=== PATIENT | male | born 1990 | race Two or more races ===

== ENCOUNTER 2016-12-15 15:41 | Inpatient (IN) | payer OTHER ==
[2016-12-15 17:58] VITALS: BMI 28.6
--- NOTE | 2016-12-15 20:20 | HP ---
COWS - Scale Resting Pulse: 1= [place] 81-100 Sweatin= Chills/Flushing Restless Observation: 1= Difficult to Sit Still Pupil Size: 1= Pupils >than Normal Bone or Joint Aches: 4=Acute Joint/Muscle Pain Runny Nose/ Eye Tearin= Constantly Teary/Runny GI Upset > 30mins: 2= Nausea/Diarrhea Tremor Observation: 1= Tremor [place], Not Seen Yawning Observation: 1= 1-2x During Session Anxiety or Irritability: 2=Irritable/Anxious Goose Flesh Skin: 3=Piloerection COWS Score: 21 Admission ROS S - [facility] Chief Complaint: WITHDRAWAL SYMPTOMS Allergies/Adverse Reactions: Allergies Allergy/AdvReac Type Severity Reaction Status Date / Time No Known Allergies Allergy Verified 12/15/16 19:15 History of Present Illness: 25 Y.O. MAN WITH A 2 YEAR HISTORY OF PERCOCET DEPENDENCE IS HER SEEKING DETOX FOR THE FIRST TIME. HE DOES NOT HAVE A SIGNIFICANT PERIOD CLEAN. Exam Limitations: No Limitations - Ebola screening Have you traveled outside of the country in the last 21 days: No Have you had contact with anyone from an Ebola affected area: No Have you been sick,other than usual withdrawal symptoms: No Do you have a fever: No - Review of Systems Constitutional: Chills, Night Sweats, Changes in sleep EENT: reports: Tearing, Nose Congestion Respiratory: reports: No Symptoms reported Cardiac: reports: Palpitations GI: reports: Abdominal cramping : reports: No Symptoms Reported Musculoskeletal: reports: No Symptoms Reported Integumentary: reports: No Symptoms Reported Neuro: reports: Headache Endocrine: reports: No Symptoms Reported Hematology: reports: No Symptoms Reported Psychiatric: reports: Orientated x3, Depressed Other Systems: Reviewed and Negative Patient History - Patient Medical History Hx Anemia: No Hx Asthma: No Hx Chronic Obstructive Pulmonary Disease (COPD): No Hx Cancer: No Hx Cardiac Disorders: No Hx Congestive Heart Failure: No Hx Hypertension: No Hx Hypercholesterolemia: No Hx Pacemaker: No HX Cerebrovascular Accident: No Hx Seizures: No Hx Dementia: No Hx Diabetes: No Hx Gastrointestinal Disorders: No Hx Liver Disease: No Hx Genitourinary Disorders: No Hx Sexually Transmitted Disorders: No Hx Renal Disease (ESRD): No Hx Thyroid Disease: No Hx Human Immunodeficiency Virus (HIV): No Hx Hepatitis C: No Hx Depression: Yes Hx Suicide Attempt: No Hx Bipolar Disorder: No Hx Schizophrenia: No - Patient Surgical History Past Surgical History: Yes Hx Neurologic Surgery: No Hx Cataract Extraction: No Hx Cardiac Surgery: No Hx Lung Surgery: No Hx Breast Surgery: No Hx Breast Biopsy: No Hx Abdominal Surgery: No Hx Appendectomy: No Hx Cholecystectomy: No Hx Genitourinary Surgery: No Hx Section: No Hx Orthopedic Surgery: Yes (TUMOR REMOVED FROM SPINE-2014) Anesthesia Reaction: No - PPD History Previous Implant?: Yes Documented Results: Negative w/o proof PPD to be Administered?: Yes - Reproductive History Patient is a Female of Child Bearing Age (11 -55 yrs old): No - Smoking Cessation Smoking history: Current every day smoker Have you smoked in the past 12 months: Yes Aproximately how many cigarettes per day: 10 Hx Chewing Tobacco Use: No Initiated information on smoking cessation: Yes 'Breaking Loose' booklet given: 12/15/16 - Substance & Tx. History Hx Alcohol Use: No Hx Substance Use: Yes Substance Use Type: Opiates Hx Substance Use Treatment: No - Substances Abused Percocet Route: Oral Frequency: Daily Amount used: 300mg Age of first use: 23 Date of Last Use: 12/15/16 Family Disease History - Family Disease History Family History: Denies Admission Physical Exam BHS - Vital Signs Vital Signs: Vital Signs - 24 hr 12/15/16 17:54 Temperature 97.4 F L Pulse Rate 83 Respiratory 20 Rate Blood Pressure 131/86 - Physical General Appearance: Yes: Tremorous, Anxious HEENTM: Yes: Normocephalic, Normal Voice Respiratory: Yes: Chest Non-Tender, Lungs Clear, Normal Breath Sounds, No Respiratory Distress, No Accessory Muscle Use Neck: Yes: No masses,lesions,Nodules, Trachea in good position Breast: Yes: Breast Exam Deferred Cardiology: Yes: Regular Rhythm, Regular Rate Abdominal: Yes: Normal Bowel Sounds, Non Tender, Flat Genitourinary: Yes: Other (NO COMPLAINTS REPORTED) Back: Yes: Normal Inspection Musculoskeletal: Yes: full range of Motion, Gait Steady, Pelvis Stable Extremities: Yes: Normal Capillary Refill, Normal Inspection Neurological: Yes: Fully Oriented, Alert, Motor Strength 5/5, Normal Mood/Affect , Normal Response Integumentary: Yes: Normal Color, Dry, Warm Lymphatic: Yes: Within Normal Limits - Diagnostic (1) Opioid dependence with withdrawal Current Visit: Yes Status: Chronic Cleared for Admission [facility] - Detox or Rehab [facility] Level of Care: Medically Managed Detox Regimen/Protocol: Methadone [facility] Breath Alcohol Content Breath Alcohol Content: 0 Urine Drug Screen - Results Drug Screen Negative: No Urine Drug Screen Results: OXY-Oxycodone
[2016-12-15] MEDS ORDERED: IBUPROFEN 400 MG TABLET (FP) PO PRN (20:29)
[2016-12-15] MEDS ORDERED: MAGNESIUM HYDROX 2400MG/30ML ORAL SUSPENSION 30 ML CUP PO PRN (20:29)
[2016-12-15] MEDS ORDERED: METHADONE HCL 10 MG TABLET (FOR DETOX USE ONLY) PO ONE ×2 (20:29→23:00)
[2016-12-15] MEDS ORDERED: P-EPHED 60MG/TRIPROLIDI 2.5MG TABLET PO PRN (20:29)
[2016-12-15] MEDS ORDERED: NICOTINE POLACRILEX 2 MG GUM BUC PRN (20:29)
[2016-12-15] MEDS ORDERED: hydrOXYzine PAMOATE 50 MG CAPSULE (FP) PO PRN (20:29)
[2016-12-15] MEDS ORDERED: LOPERAMIDE HCL 2 MG CAPSULE PO PRN (20:29)
[2016-12-15] MEDS ORDERED: MENTHOL/PHENOL 1 EACH UD MM PRN (20:29)
[2016-12-15] MEDS ORDERED: MAG HYDROX/AL HYDROX/SIMETH 30 ML UNIT-DOSE CUP PO PRN (20:29)
[2016-12-15] MEDS ORDERED: MAGNESIUM CITRATE 300 ML BOTTLE PO PRN (20:29)
[2016-12-15] MEDS ORDERED: guaiFENesin/D-METHORPHAN HB 10 ML UNIT-DOSE CUPS PO PRN (20:29)
[2016-12-15] MEDS ORDERED: ACETAMINOPHEN 325 MG TABLET (FP) PO PRN (20:29)
[2016-12-15] MEDS: diazePAM 5 MG TABLET PO PRN (22:35)
[2016-12-15] MEDS: diphenhydrAMINE HCL 50 MG CAPSULE PO PRN (22:37)
[2016-12-15] MEDS: THIAMINE HCL 100 MG TABLET (FP) PO SCH (22:37)
[2016-12-15 23:39] LABS: URINE APPEARANCE CLOUDY; URINE BILIRUBIN NEGATIVE (NEGATIVE); URINE BLOOD NEGATIVE (NEGATIVE); URINE COLOR YELLOW; URINE GLUCOSE (UA) NEGATIVE (NEGATIVE); URINE KETONE NEGATIVE (NEGATIVE); URINE LEUK ESTERASE NEGATIVE (NEGATIVE); URINE NITRITE NEGATIVE (NEGATIVE); URINE PROTEIN NEGATIVE (NEGATIVE)
[2016-12-16] MEDS ORDERED: METHADONE HCL 10 MG TABLET (FOR DETOX USE ONLY) PO ONE (10:00)
[2016-12-16 10:08] LABS: MCH 30.4 pg (25.7-33.7); MCHC 33.5 g/dl (32.0-35.9); MEAN CELL VOLUME 90.8 fl (80-96); MEAN PLT VOLUME 9.4 fl (7.5-11.1); PLATELET COUNT 203 K/MM3 (134-434); RDW 13.3 % (11.9-15.9); WHITE BLOOD COUNT 9.5 K/mm3 (4.0-10.0)
[2016-12-16] MEDS: PRENATAL VITAMINS W/ FOLIC ACID TABLET (FP) PO SCH (10:21)
[2016-12-16] MEDS: NICOTINE 14 MG/24 HOURS TOPICAL PATCH TD SCH (10:22)
[2016-12-16 10:26] LABS: ALBUMIN 4.4 g/dl (3.4-5.0); ANION GAP 8 (8-16); BILIRUBIN,TOTAL 0.7 mg/dL (0.2-1.0); CALCIUM 9.4 mg/dL (8.5-10.1); CO2 26 mmol/L (21-32); CREATININE 0.8 mg/dL (0.7-1.3); GLUCOSE,RANDOM 86 mg/dL (74-106); SGOT/AST 21 U/L (15-37); SGPT/ALT 46 U/L (12-78); TOT PROT 7.6 g/dl (6.4-8.2)
[2016-12-16 10:27] LABS: ALK PHOS 156 U/L (45-117)
--- NOTE | 2016-12-16 13:06 | EKG ---
Test Reason : Blood Pressure : / mmHG Vent. Rate : 083 BPM Atrial Rate : 083 BPM P-R Int : 148 ms QRS Dur : 094 ms QT Int : 376 ms P-R-T Axes : 049 074 051 degrees QTc Int : 441 ms NORMAL SINUS RHYTHM NO PREVIOUS ECGS AVAILABLE Confirmed by SHANTEL MEEK MD ([id number]) on 12/16/2016 1:05:58 PM Referred By: Confirmed By:SHANTEL MEEK MD
--- NOTE | 2016-12-16 14:14 | PN ---
BHS COWS - Scale Resting Pulse: 0= [place] 80 or Below Sweatin= Chills/Flushing Restless Observation: 3= Extraneous Movement Pupil Size: 2= Moderately Dilated Bone or Joint Aches: 2= Severe Diffuse Aches Runny Nose/ Eye Tearin= Runny Nose/Eyes GI Upset > 30mins: 3= Vomiting/Diarrhea Tremor Observation of Outstretched Hands: 2= Slight Tremor Visible Yawning Observation: 1= 1-2x During Session Anxiety or Irritability: 2=Irritable/Anxious Goose Flesh Skin: 0=Smooth Skin COWS Score: 18 BHS Progress Note (SOAP) Subjective: ALERT,IRRITABLE,ANXIOUS,INTERRUPTED SLEEP,TREMOR, Objective: 12/16/16 14:09 Vital Signs Temperature 98.1 F 12/16/16 13:37 Pulse Rate 93 H 12/16/16 13:37 Respiratory Rate 20 12/16/16 13:37 Blood Pressure 123/78 12/16/16 13:37 O2 Sat by Pulse Oximetry (%) 12/16/16 14:11 12/16/16 14:14 EKG NSR NORMAL ECG Laboratory Last Values WBC 9.5 K/mm3 (4.0-10.0) 12/16/16 08:00 RBC 5.01 M/mm3 (4.00-5.60) 12/16/16 08:00 Hgb 15.2 GM/dL (11.7-16.9) 12/16/16 08:00 Hct 45.4 % (35.4-49) 12/16/16 08:00 MCV 90.8 fl (80-96) 12/16/16 08:00 MCH 30.4 pg (25.7-33.7) 12/16/16 08:00 MCHC 33.5 g/dl (32.0-35.9) 12/16/16 08:00 RDW 13.3 % (11.9-15.9) 12/16/16 08:00 Plt Count 203 K/MM3 (134-434) 12/16/16 08:00 MPV 9.4 fl (7.5-11.1) 12/16/16 08:00 Sodium 140 mmol/L (136-145) 12/16/16 08:00 Potassium 4.0 mmol/L (3.5-5.1) 12/16/16 08:00 Chloride 106 mmol/L (98-107) 12/16/16 08:00 Carbon Dioxide 26 mmol/L (21-32) 12/16/16 08:00 Anion Gap 8 (8-16) 12/16/16 08:00 BUN 11 mg/dL (7-18) 12/16/16 08:00 Creatinine 0.8 mg/dL (0.7-1.3) 12/16/16 08:00 Creat Clearance w eGFR > 60 (>60) 12/16/16 08:00 Random Glucose 86 mg/dL (74-106) 12/16/16 08:00 Calcium 9.4 mg/dL (8.5-10.1) 12/16/16 08:00 Total Bilirubin 0.7 mg/dL (0.2-1.0) 12/16/16 08:00 AST 21 U/L (15-37) 12/16/16 08:00 ALT 46 U/L (12-78) 12/16/16 08:00 Alkaline Phosphatase 156 U/L (45-117) H 12/16/16 08:00 Total Protein 7.6 g/dl (6.4-8.2) 12/16/16 08:00 Albumin 4.4 g/dl (3.4-5.0) 12/16/16 08:00 Urine Color Yellow 12/15/16 23:20 Urine Appearance Cloudy 12/15/16 23:20 Urine pH 7.0 (5.0-8.0) 12/15/16 23:20 Ur Specific [place] 1.020 (1.005-1.025) 12/15/16 23:20 Urine Protein Negative (NEGATIVE) 12/15/16 23:20 Urine Glucose (UA) Negative (NEGATIVE) 12/15/16 23:20 Urine Ketones Negative (NEGATIVE) 12/15/16 23:20 Urine Blood Negative (NEGATIVE) 12/15/16 23:20 Urine Nitrite Negative (NEGATIVE) 12/15/16 23:20 Urine Bilirubin Negative (NEGATIVE) 12/15/16 23:20 Urine Urobilinogen 2.0 mg/dL (0.2-1.0) 12/15/16 23:20 RPR Titer Nonreactive (NONREACTIVE) 12/16/16 08:00 Assessment: 12/16/16 14:16 WITHDRAWAL SYMPTOM Plan: CONTINUE DETOX
--- NOTE | 2016-12-16 18:28 | CONSULT ---
[facility] Psychiatric Consult - Data Date of interview: 12/16/16 Admission source: [facility] Identifying data: First admission to [facility] for this 25 y/o male seeking detox treatment on for opioid dependence.Patient is single, father of two,domiciled and employed. Substance Abuse History: Confirmed by patient in this session. Smoking Cessation. Smoking history: Current every day smoker. Have you smoked in the past 12 months: Yes. Aproximately how many cigarettes per day: 10. Hx Chewing Tobacco Use: No. Initiated information on smoking cessation: Yes. 'Breaking Loose' booklet given: 12/15/16. - Substance & Tx. History. Hx Alcohol Use: No. Hx Substance Use: Yes. Substance Use Type: Opiates. Hx Substance Use Treatment: No. - Substances Abused. Percocet. Route: Oral. Frequency: Daily. Amount used: 300mg. Age of first use: 23. Date of Last Use: 12/15/16 Medical History: Patient endorses good general health. Psychiatric History: Patient denies. Physical/Sexual Abuse/Trauma History: No reported history of abuse. Additional Comment: Urine Drug Screen Results: OXY-Oxycodone.Noted. Mental Status Exam - Mental Status Exam Alert and Oriented to: Time, Place, Person Cognitive Function: Good Patient Appearance: Well Groomed Mood: Euthymic Affect: Normal Range Patient Behavior: Cooperative Speech Pattern: Clear Voice Loudness: Normal Thought Process: Goal Oriented Thought Disorder: Not Present Hallucinations: Denies Suicidal Ideation: Denies Homicidal Ideation: Denies Insight/Judgement: Poor Sleep: Fair Appetite: Good Muscle strength/Tone: Normal Gait/Station: Normal Psychiatric Findings - Problem List ([place] 1, 2,3) (1) Opioid dependence with withdrawal Current Visit: Yes Status: Acute - Initial Treatment Plan Initial Treatment Plan: Psychoeducation.Detoxification.Observation.
[2016-12-16] MEDS: diazePAM 5 MG TABLET PO PRN (22:22)
[2016-12-16] MEDS: THIAMINE HCL 100 MG TABLET (FP) PO SCH (22:22)
[2016-12-16] MEDS: diphenhydrAMINE HCL 50 MG CAPSULE PO PRN (22:23)
[2016-12-17] MEDS ORDERED: METHADONE HCL 5 MG TABLET (FOR DETOX USE ONLY) PO ONE (10:00)
[2016-12-17] MEDS: PRENATAL VITAMINS W/ FOLIC ACID TABLET (FP) PO SCH (10:24)
[2016-12-17] MEDS: NICOTINE 14 MG/24 HOURS TOPICAL PATCH TD SCH (10:24)
[2016-12-17] MEDS: diazePAM 5 MG TABLET PO PRN ×3 (10:24→22:20)
--- NOTE | 2016-12-17 13:24 | PN ---
S COWS - Scale Resting Pulse: 0= [place] 80 or Below Sweatin= Chills/Flushing Restless Observation: 3= Extraneous Movement Pupil Size: 1= Pupils >than Normal Bone or Joint Aches: 2= Severe Diffuse Aches Runny Nose/ Eye Tearin= Runny Nose/Eyes GI Upset > 30mins: 2= Nausea/Diarrhea Tremor Observation of Outstretched Hands: 2= Slight Tremor Visible Yawning Observation: 1= 1-2x During Session Anxiety or Irritability: 2=Irritable/Anxious Goose Flesh Skin: 0=Smooth Skin COWS Score: 16 S Progress Note (SOAP) Subjective: ALERT,IRRITABLE,ANXIOUS,INTERRUPTED SLEEP,TREMOR,PAIN IN THE BACK,BODY AND EXTREMITIES Objective: 12/17/16 13:22 Vital Signs Temperature 97.5 F L 12/17/16 11:46 Pulse Rate 77 12/17/16 11:46 Respiratory Rate 18 12/17/16 11:46 Blood Pressure 129/79 12/17/16 11:46 O2 Sat by Pulse Oximetry (%) Laboratory Last Values WBC 9.5 K/mm3 (4.0-10.0) 12/16/16 08:00 RBC 5.01 M/mm3 (4.00-5.60) 12/16/16 08:00 Hgb 15.2 GM/dL (11.7-16.9) 12/16/16 08:00 Hct 45.4 % (35.4-49) 12/16/16 08:00 MCV 90.8 fl (80-96) 12/16/16 08:00 MCH 30.4 pg (25.7-33.7) 12/16/16 08:00 MCHC 33.5 g/dl (32.0-35.9) 12/16/16 08:00 RDW 13.3 % (11.9-15.9) 12/16/16 08:00 Plt Count 203 K/MM3 (134-434) 12/16/16 08:00 MPV 9.4 fl (7.5-11.1) 12/16/16 08:00 Sodium 140 mmol/L (136-145) 12/16/16 08:00 Potassium 4.0 mmol/L (3.5-5.1) 12/16/16 08:00 Chloride 106 mmol/L (98-107) 12/16/16 08:00 Carbon Dioxide 26 mmol/L (21-32) 12/16/16 08:00 Anion Gap 8 (8-16) 12/16/16 08:00 BUN 11 mg/dL (7-18) 12/16/16 08:00 Creatinine 0.8 mg/dL (0.7-1.3) 12/16/16 08:00 Creat Clearance w eGFR > 60 (>60) 12/16/16 08:00 Random Glucose 86 mg/dL (74-106) 12/16/16 08:00 Calcium 9.4 mg/dL (8.5-10.1) 12/16/16 08:00 Total Bilirubin 0.7 mg/dL (0.2-1.0) 12/16/16 08:00 AST 21 U/L (15-37) 12/16/16 08:00 ALT 46 U/L (12-78) 12/16/16 08:00 Alkaline Phosphatase 156 U/L (45-117) H 12/16/16 08:00 Total Protein 7.6 g/dl (6.4-8.2) 12/16/16 08:00 Albumin 4.4 g/dl (3.4-5.0) 12/16/16 08:00 Urine Color Yellow 12/15/16 23:20 Urine Appearance Cloudy 12/15/16 23:20 Urine pH 7.0 (5.0-8.0) 12/15/16 23:20 Ur Specific [place] 1.020 (1.005-1.025) 12/15/16 23:20 Urine Protein Negative (NEGATIVE) 12/15/16 23:20 Urine Glucose (UA) Negative (NEGATIVE) 12/15/16 23:20 Urine Ketones Negative (NEGATIVE) 12/15/16 23:20 Urine Blood Negative (NEGATIVE) 12/15/16 23:20 Urine Nitrite Negative (NEGATIVE) 12/15/16 23:20 Urine Bilirubin Negative (NEGATIVE) 12/15/16 23:20 Urine Urobilinogen 2.0 mg/dL (0.2-1.0) 12/15/16 23:20 RPR Titer Nonreactive (NONREACTIVE) 12/16/16 08:00 Assessment: 12/17/16 13:23 WITHDRAWAL SYMPTOM Plan: CONTINUE DETOX
[2016-12-17] MEDS: THIAMINE HCL 100 MG TABLET (FP) PO SCH (22:20)
[2016-12-17] MEDS: diphenhydrAMINE HCL 50 MG CAPSULE PO PRN (22:20)
[2016-12-18] MEDS: diphenhydrAMINE HCL 50 MG CAPSULE PO PRN ×2 (00:29→22:22)
--- NOTE | 2016-12-18 09:07 | PN ---
BHS Progress Note (SOAP) Subjective: sweats interrupted sleep feeling better Objective: 12/18/16 09:04 Vital Signs Temperature 98.1 F 12/18/16 06:32 Pulse Rate 88 12/18/16 06:32 Respiratory Rate 18 12/18/16 06:32 Blood Pressure 117/69 12/18/16 06:32 O2 Sat by Pulse Oximetry (%) AAOx3 ambulating no acute distress Assessment: 12/18/16 09:05 withdrawal sx Plan: continue detox increase fluids d/c in am
[2016-12-18] MEDS ORDERED: METHADONE HCL 10 MG TABLET (FOR DETOX USE ONLY) PO ONE (10:00)
[2016-12-18] MEDS ORDERED: METHADONE HCL 5 MG TABLET (FOR DETOX USE ONLY) PO ONE (10:00)
[2016-12-18] MEDS: NICOTINE 14 MG/24 HOURS TOPICAL PATCH TD SCH (10:47)
[2016-12-18] MEDS: PRENATAL VITAMINS W/ FOLIC ACID TABLET (FP) PO SCH (10:47)
[2016-12-18] MEDS: diazePAM 5 MG TABLET PO PRN (14:35)
[2016-12-18] MEDS: THIAMINE HCL 100 MG TABLET (FP) PO SCH (22:22)
[2016-12-19] MEDS ORDERED: METHADONE HCL 5 MG TABLET (FOR DETOX USE ONLY) PO ONE (06:00)
--- NOTE | 2016-12-19 09:23 | DS ---
[facility] Detox Discharge Summary Admission Date: 12/15/16 Discharge Date: 12/19/16 - History Present History: Opioid Dependence - Physical Exam Results Vital Signs: Vital Signs Temperature 97.7 F 12/19/16 06:00 Pulse Rate 81 12/19/16 06:00 Respiratory Rate 18 12/19/16 06:00 Blood Pressure 108/55 12/19/16 06:00 O2 Sat by Pulse Oximetry (%) - Treatment Hospital Course: Detox Protocol Followed, Detoxed Safely, Responded well, Discharged Condition Good, Rehab Referral Accepted - Medication Discharge Medications: Ambulatory Orders NK [No Known Home Medication] 12/15/16 - Diagnosis (1) Opioid dependence with withdrawal Current Visit: Yes Status: Chronic - AMA Did Patient Leave Against Medical Advice: No (going home)
[2016-12-19] MEDS ORDERED: METHADONE HCL 10 MG TABLET (FOR DETOX USE ONLY) PO ONE (10:00)
[2016-12-19 10:53] VITALS: BP 136/78; PULSE 84; TEMP 96.4
[2016-12-20] MEDS ORDERED: METHADONE HCL 5 MG TABLET (FOR DETOX USE ONLY) PO ONE (06:00)
== END 2016-12-19 09:20 | disposition home or self-care (01) | DRG 773 ==
LOC: YASAS 15:41 → Y6N 19:59
PROVIDERS: ADMIT Internal Medicine; ATTEND Internal Medicine
PROC: HZ2ZZZZ Detoxification Services for Substance Abuse Treatment (ICD-10-PCS; principal; 2016-12-15)
DX: F11.20 Opioid dependence, uncomplicated (principal); F17.210 Nicotine dependence, cigarettes, uncomplicated
CPT/HCPCS: 36415; 80053; 81003; 85027; 86593; 93005; 93010

== ENCOUNTER 2017-02-15 15:26 | Inpatient (IN) | payer OTHER ==
[2017-02-15 17:39] VITALS: BMI 29.5
[2017-02-15] MEDS ORDERED: LOPERAMIDE HCL 2 MG CAPSULE PO PRN (21:29)
[2017-02-15] MEDS ORDERED: guaiFENesin/D-METHORPHAN HB 10 ML UNIT-DOSE CUPS PO PRN (21:29)
[2017-02-15] MEDS ORDERED: ACETAMINOPHEN 325 MG TABLET (FP) PO PRN (21:29)
[2017-02-15] MEDS ORDERED: MAG HYDROX/AL HYDROX/SIMETH 30 ML UNIT-DOSE CUP PO PRN (21:29)
[2017-02-15] MEDS ORDERED: IBUPROFEN 400 MG TABLET (FP) PO PRN (21:29)
[2017-02-15] MEDS ORDERED: MAGNESIUM HYDROX 2400MG/30ML ORAL SUSPENSION 30 ML CUP PO PRN (21:29)
[2017-02-15] MEDS ORDERED: METHADONE HCL 10 MG TABLET (FOR DETOX USE ONLY) PO ONE ×2 (21:29→23:00)
[2017-02-15] MEDS ORDERED: P-EPHED 60MG/TRIPROLIDI 2.5MG TABLET PO PRN (21:29)
[2017-02-15] MEDS ORDERED: MAGNESIUM CITRATE 300 ML BOTTLE PO PRN (21:29)
[2017-02-15] MEDS ORDERED: NICOTINE POLACRILEX 2 MG GUM BC PRN (21:29)
[2017-02-15] MEDS ORDERED: MENTHOL/PHENOL 1 EACH UD MM PRN (21:29)
--- NOTE | 2017-02-15 21:29 | HP ---
COWS - Scale Resting Pulse: 0= [place] 80 or Below Sweatin= Chills/Flushing Restless Observation: 3= Extraneous Movement Pupil Size: 1= Pupils >than Normal Bone or Joint Aches: 2= Severe Diffuse Aches Runny Nose/ Eye Tearin= Runny Nose/Eyes GI Upset > 30mins: 1= Stomach Cramp Tremor Observation: 2= Slight Tremor Visible Yawning Observation: 0= None Anxiety or Irritability: 2=Irritable/Anxious Goose Flesh Skin: 0=Smooth Skin COWS Score: 14 Admission [facility] Chief Complaint: withdrawal sx Allergies/Adverse Reactions: Allergies Allergy/AdvReac Type Severity Reaction Status Date / Time No Known Allergies Allergy Verified 01/22/17 23:24 History of Present Illness: 26 years old male with long history of opiate marijuana nicotine dependence has depression is admitted to detox Exam Limitations: No Limitations - Ebola screening Have you traveled outside of the country in the last 21 days: No Have you had contact with anyone from an Ebola affected area: No Have you been sick,other than usual withdrawal symptoms: No Do you have a fever: No - Review of Systems Constitutional: Changes in sleep, Weight Stable EENT: reports: No Symptoms Reported Respiratory: reports: No Symptoms reported Cardiac: reports: No Symptoms Reported GI: reports: Nausea, Poor Fluid Intake, Abdominal cramping : reports: No Symptoms Reported Musculoskeletal: reports: Back Pain, Joint Pain, Muscle Pain, Neck Pain Integumentary: reports: No Symptoms Reported Neuro: reports: Tremors Endocrine: reports: No Symptoms Reported Hematology: reports: No Symptoms Reported Psychiatric: reports: Judgement Intact, Orientated x3, Anxious, Depressed Other Systems: Reviewed and Negative Patient History - Patient Medical History Hx Anemia: No Hx Asthma: No Hx Chronic Obstructive Pulmonary Disease (COPD): No Hx Cancer: No Hx Cardiac Disorders: No Hx Congestive Heart Failure: No Hx Hypertension: No Hx Hypercholesterolemia: No Hx Pacemaker: No HX Cerebrovascular Accident: No Hx Seizures: No Hx Dementia: No Hx Diabetes: No Hx Gastrointestinal Disorders: No Hx Liver Disease: No Hx Genitourinary Disorders: No Hx Sexually Transmitted Disorders: No Hx Renal Disease (ESRD): No Hx Thyroid Disease: No Hx Human Immunodeficiency Virus (HIV): No Hx Hepatitis C: No Hx Depression: Yes Hx Suicide Attempt: No Hx Bipolar Disorder: No Hx Schizophrenia: No - Patient Surgical History Past Surgical History: Yes Hx Neurologic Surgery: No Hx Cataract Extraction: No Hx Cardiac Surgery: No Hx Lung Surgery: No Hx Breast Surgery: No Hx Breast Biopsy: No Hx Abdominal Surgery: No Hx Appendectomy: No Hx Cholecystectomy: No Hx Genitourinary Surgery: No Hx Orthopedic Surgery: Yes (TUMOR REMOVED FROM SPINE-2014) Anesthesia Reaction: No - PPD History Previous Implant?: Yes Documented Results: Negative w/proof Implanted On Prior [facility] Admission?: Yes Date: 12/17/16 Results: 0mm PPD to be Administered?: No - Smoking Cessation Smoking history: Current every day smoker Have you smoked in the past 12 months: Yes Aproximately how many cigarettes per day: 10 Hx Chewing Tobacco Use: No Initiated information on smoking cessation: Yes 'Breaking Loose' booklet given: 02/15/17 - Substance & Tx. History Hx Alcohol Use: No Hx Substance Use: Yes Substance Use Type: Opiates Hx Substance Use Treatment: Yes (01/2017) - Substances Abused Percocet Route: Oral Frequency: Daily Amount used: 300mg Age of first use: 22 Date of Last Use: 02/14/17 Family Disease History - Family Disease History Family Disease History: Heart Disease: Mother (), Other: Father ( dialysis kidney), Mother Admission Physical Exam BHS - Vital Signs Vital Signs: Vital Signs - 24 hr 02/15/17 17:37 Temperature 97.9 F Pulse Rate 76 Respiratory 18 Rate Blood Pressure 163/101 - Physical General Appearance: Yes: Nourished, Appropriately Dressed, Mild Distress, Tremorous, Irritable, Sweating, Anxious HEENTM: Yes: Hearing grossly Normal, Normal ENT Inspection, Normocephalic, Normal Voice Respiratory: Yes: Chest Non-Tender, Lungs Clear, Normal Breath Sounds, No Respiratory Distress, No Accessory Muscle Use Neck: Yes: Supple, Trachea in good position Breast: Yes: Breasts Symetrical Cardiology: Yes: Regular Rhythm, Regular Rate, S1, S2 Abdominal: Yes: Normal Bowel Sounds, Non Tender, Soft Genitourinary: Yes: Within Normal Limits Back: Yes: Normal Inspection Musculoskeletal: Yes: full range of Motion, Gait Steady, Back pain, Muscle Pain Extremities: Yes: Normal Inspection, Normal Range of Motion, Non-Tender, Tremors Neurological: Yes: Fully Oriented, Alert, Motor Strength 5/5, Normal Response, Depressed Affect Integumentary: Yes: Warm Lymphatic: Yes: Within Normal Limits - Diagnostic (1) Depression (emotion) Current Visit: Yes Status: Suspected Qualifiers: Depression Type: dysthymia Qualified Code(s): F34.1 - Dysthymic disorder (2) Nicotine dependence Current Visit: Yes Status: Acute Qualifiers: Nicotine product type: cigarettes Substance use status: in withdrawal Qualified Code(s): F17.213 - Nicotine dependence, cigarettes, with withdrawal (3) Opioid dependence with withdrawal Current Visit: Yes Status: Acute Cleared for Admission [facility] - Detox or Rehab [facility] Level of Care: Medically Managed Detox Regimen/Protocol: Methadone [facility] Breath Alcohol Content Breath Alcohol Content: 0 Urine Drug Screen - Results Drug Screen Negative: No Urine Drug Screen Results: THC-Marijuana, OXY-Oxycodone
[2017-02-15] MEDS: THIAMINE HCL 100 MG TABLET (FP) PO SCH (22:34)
[2017-02-15] MEDS: diazePAM 5 MG TABLET PO PRN (22:34)
[2017-02-16 02:53] LABS: URINE APPEARANCE CLOUDY; URINE BILIRUBIN NEGATIVE (NEGATIVE); URINE BLOOD NEGATIVE (NEGATIVE); URINE COLOR YELLOW; URINE GLUCOSE (UA) NEGATIVE (NEGATIVE); URINE KETONE NEGATIVE (NEGATIVE); URINE NITRITE NEGATIVE (NEGATIVE); URINE PROTEIN NEGATIVE (NEGATIVE); URINE UROBILINOGEN NEGATIVE mg/dL (0.2-1.0)
--- NOTE | 2017-02-16 09:42 | PN ---
BHS COWS - Scale Resting Pulse: 0= [place] 80 or Below Sweatin=Flushed/Facial Moisture Restless Observation: 1= Difficult to Sit Still Pupil Size: 0= Normal to Room Light Bone or Joint Aches: 1= Mild Discomfort Runny Nose/ Eye Tearin= Nasal Congestion GI Upset > 30mins: 2= Nausea/Diarrhea Tremor Observation of Outstretched Hands: 2= Slight Tremor Visible Yawning Observation: 1= 1-2x During Session Anxiety or Irritability: 2=Irritable/Anxious Goose Flesh Skin: 0=Smooth Skin COWS Score: 12 BHS Progress Note (SOAP) Subjective: Anxiety,nausea,tremors,sweating,interrupted sleep,restless. Objective: 02/16/17 09:41 Vital Signs - 8 hr 02/16/17 02/16/17 04:16 06:18 Temperature 96.4 F L Pulse Rate 72 Respiratory 18 18 Rate Blood Pressure 90/65 Laboratory Tests 02/16/17 00:00 Urine Color Yellow Urine Appearance Cloudy Urine pH 8.0 D Ur Specific [place] 1.021 Urine Protein Negative Urine Glucose (UA) Negative Urine Ketones Negative Urine Blood Negative Urine Nitrite Negative Urine Bilirubin Negative Urine Urobilinogen Negative Assessment: 02/16/17 09:41 Withdrawal Sx. Plan: Continue detox
[2017-02-16 09:59] LABS: MCH 30.4 pg (25.7-33.7); MCHC 33.3 g/dl (32.0-35.9); MEAN CELL VOLUME 91.4 fl (80-96); MEAN PLT VOLUME 9.5 fl (7.5-11.1); PLATELET COUNT 184 K/MM3 (134-434); RDW 13.1 % (11.9-15.9); WHITE BLOOD COUNT 6.8 K/mm3 (4.0-10.0)
[2017-02-16] MEDS ORDERED: METHADONE HCL 10 MG TABLET (FOR DETOX USE ONLY) PO ONE (10:00)
[2017-02-16 10:02] LABS: ALBUMIN 3.9 g/dl (3.4-5.0); ANION GAP 5 (8-16); CALCIUM 8.4 mg/dL (8.5-10.1); CO2 30 mmol/L (21-32); CREATININE 0.8 mg/dL (0.7-1.3)
[2017-02-16] MEDS: PRENATAL VITAMINS W/ FOLIC ACID TABLET (FP) PO SCH (10:10)
[2017-02-16] MEDS: NICOTINE 14 MG/24 HOURS TOPICAL PATCH TD SCH (10:12)
--- NOTE | 2017-02-16 10:12 | EKG ---
Test Reason : Blood Pressure : / mmHG Vent. Rate : 077 BPM Atrial Rate : 077 BPM P-R Int : 150 ms QRS Dur : 096 ms QT Int : 384 ms P-R-T Axes : 026 070 021 degrees QTc Int : 434 ms NORMAL SINUS RHYTHM NON-SPECIFIC INTRA-VENTRICULAR CONDUCTION DELAY WHEN COMPARED WITH ECG OF 23-JAN-2017 01:10, NO SIGNIFICANT CHANGE WAS FOUND Confirmed by SHANTEL MEEK MD ([id number]) on 02/16/2017 10:11:49 AM Referred By: LUZ VALDEZ Confirmed By:SHANTEL MEEK MD
[2017-02-16] MEDS: diazePAM 5 MG TABLET PO PRN ×3 (10:13→22:23)
[2017-02-16 10:14] LABS: ALK PHOS 124 U/L (45-117); BILIRUBIN,TOTAL 0.5 mg/dL (0.2-1.0); GLUCOSE,RANDOM 91 mg/dL (74-106); SGOT/AST 15 U/L (15-37); SGPT/ALT 39 U/L (12-78); TOT PROT 6.7 g/dl (6.4-8.2)
[2017-02-16 10:26] LABS: URINE LEUK ESTERASE Negative (NEGATIVE)
--- NOTE | 2017-02-16 15:09 | CONSULT ---
[facility] Psychiatric Consult - Data Date of interview: 02/15/17 Admission source: [facility] Identifying data: Pt. is 26 year old male, single, unemployed with 3 kids. This is patient's 3rd admission to [facility]. Pt. admitted to for detox from opioid dependence. Substance Abuse History: Opioid- Begun using percocet 3 years ago. Reports taking 7-8 pills daily. Last used 2 days ago. Marijuana- Begun using at age 14. Reports smoking 1-2 joints daily. Cigarettes- Reports smoking approximately 1 pack per day beginning at age 17. Medical History: Denies Psychiatric History: Denies. Physical/Sexual Abuse/Trauma History: Denies. Mental Status Exam - Mental Status Exam Alert and Oriented to: Time, Place, Person Cognitive Function: Fair Patient Appearance: Well Groomed Mood: Depressed Affect: Mood Congruent Patient Behavior: Appropriate, Cooperative Speech Pattern: Clear Voice Loudness: Normal Thought Process: Goal Oriented Thought Disorder: Present Hallucinations: Denies Suicidal Ideation: Denies Homicidal Ideation: Denies Insight/Judgement: Fair Sleep: Fair Appetite: Good Muscle strength/Tone: Normal Gait/Station: Normal Psychiatric Findings - Problem List ([place] 1, 2,3) (1) Substance induced mood disorder Current Visit: Yes Status: Acute (2) Nicotine dependence Current Visit: Yes Status: Acute Qualifiers: Nicotine product type: cigarettes Substance use status: in withdrawal Qualified Code(s): F17.213 - Nicotine dependence, cigarettes, with withdrawal (3) Opioid dependence with withdrawal Current Visit: Yes Status: Acute (4) Cannabis dependence Current Visit: No Status: Acute - Initial Treatment Plan Initial Treatment Plan: Psychoeducation provided. Chart reviewed. Detoxification in progress. Psychotrophic medications not needed at this time. Will continue to monitor patient.
[2017-02-16] MEDS: THIAMINE HCL 100 MG TABLET (FP) PO SCH (22:24)
[2017-02-17] MEDS ORDERED: METHADONE HCL 5 MG TABLET (FOR DETOX USE ONLY) PO ONE (10:00)
[2017-02-17] MEDS: PRENATAL VITAMINS W/ FOLIC ACID TABLET (FP) PO SCH (10:08)
[2017-02-17] MEDS: NICOTINE 14 MG/24 HOURS TOPICAL PATCH TD SCH (10:09)
[2017-02-17] MEDS: diazePAM 5 MG TABLET PO PRN ×3 (10:11→22:16)
--- NOTE | 2017-02-17 10:17 | PN ---
BHS COWS - Scale Resting Pulse: 1= [place] 81-100 Sweatin=Flushed/Facial Moisture Restless Observation: 1= Difficult to Sit Still Pupil Size: 0= Normal to Room Light Bone or Joint Aches: 1= Mild Discomfort Runny Nose/ Eye Tearin= Nasal Congestion GI Upset > 30mins: 2= Nausea/Diarrhea Tremor Observation of Outstretched Hands: 2= Slight Tremor Visible Yawning Observation: 1= 1-2x During Session Anxiety or Irritability: 2=Irritable/Anxious Goose Flesh Skin: 0=Smooth Skin COWS Score: 13 BHS Progress Note (SOAP) Subjective: Sweating,anxiety,body aches,interrupted sleep Objective: 02/17/17 10:16 Last Vital Signs Temp Pulse Resp BP Pulse Ox 97.7 F 81 18 132/69 02/17/17 10:00 02/17/17 10:00 02/17/17 10:00 02/17/17 10:00 Laboratory Tests 02/16/17 02/16/17 02/16/17 00:00 07:00 07:00 WBC 6.8 RBC 4.64 Hgb 14.1 Hct 42.4 MCV 91.4 MCH 30.4 MCHC 33.3 RDW 13.1 Plt Count 184 MPV 9.5 Sodium 140 Potassium 3.8 Chloride 105 Carbon Dioxide 30 Anion Gap 5 L BUN 12 Creatinine 0.8 Creat Clearance w eGFR > 60 Random Glucose 91 Calcium 8.4 L Total Bilirubin 0.5 D AST 15 ALT 39 Alkaline Phosphatase 124 H Total Protein 6.7 Albumin 3.9 Urine Color Yellow Urine Appearance Cloudy Urine pH 8.0 D Ur Specific [place] 1.021 Urine Protein Negative Urine Glucose (UA) Negative Urine Ketones Negative Urine Blood Negative Urine Nitrite Negative Urine Bilirubin Negative Urine Urobilinogen Negative Ur Leukocyte Esterase Negative RPR Titer 02/16/17 07:00 WBC RBC Hgb Hct MCV MCH MCHC RDW Plt Count MPV Sodium Potassium Chloride Carbon Dioxide Anion Gap BUN Creatinine Creat Clearance w eGFR Random Glucose Calcium Total Bilirubin AST ALT Alkaline Phosphatase Total Protein Albumin Urine Color Urine Appearance Urine pH Ur Specific [place] Urine Protein Urine Glucose (UA) Urine Ketones Urine Blood Urine Nitrite Urine Bilirubin Urine Urobilinogen Ur Leukocyte Esterase RPR Titer Nonreactive labs noted Assessment: 02/17/17 10:17 Withdrawal sx. Plan: Continue detox
[2017-02-17] MEDS: THIAMINE HCL 100 MG TABLET (FP) PO SCH (22:15)
[2017-02-18 06:01] VITALS: PULSE 78
[2017-02-18 09:43] VITALS: BP 119/78; TEMP 97.5
[2017-02-18] MEDS ORDERED: METHADONE HCL 5 MG TABLET (FOR DETOX USE ONLY) PO ONE ×2 (10:00)
[2017-02-18] MEDS: PRENATAL VITAMINS W/ FOLIC ACID TABLET (FP) PO SCH (10:06)
[2017-02-18] MEDS: NICOTINE 14 MG/24 HOURS TOPICAL PATCH TD SCH (10:09)
[2017-02-18] MEDS: diazePAM 5 MG TABLET PO PRN (10:09)
--- NOTE | 2017-02-18 12:24 | DS ---
[facility] Detox Discharge Summary Admission Date: 02/15/17 Discharge Date: 02/18/17 - History Present History: Opioid Dependence Pertinent Past History: patient reports had methodone 15 mg yesterday requests methadone 10 mg for today and 5 mg for tomorrow patient states that he feels better today patient received methadone 10 mg and approached to the [facility]ha underwriter "I want to leave now" patient refuses to discuss IOP aftercare with the [facility] underwriter refuses futher conversation regarding addiction and sobriety - Physical Exam Results Vital Signs: Vital Signs Temperature 97.5 F L 02/18/17 09:43 Pulse Rate 78 02/18/17 09:43 Respiratory Rate 18 02/18/17 09:43 Blood Pressure 119/78 02/18/17 09:43 O2 Sat by Pulse Oximetry (%) Pertinent Admission Physical Exam Findings: withdrawal sx Laboratory Last Values WBC 6.8 K/mm3 (4.0-10.0) 02/16/17 07:00 RBC 4.64 M/mm3 (4.00-5.60) 02/16/17 07:00 Hgb 14.1 GM/dL (11.7-16.9) 02/16/17 07:00 Hct 42.4 % (35.4-49) 02/16/17 07:00 MCV 91.4 fl (80-96) 02/16/17 07:00 MCH 30.4 pg (25.7-33.7) 02/16/17 07:00 MCHC 33.3 g/dl (32.0-35.9) 02/16/17 07:00 RDW 13.1 % (11.9-15.9) 02/16/17 07:00 Plt Count 184 K/MM3 (134-434) 02/16/17 07:00 MPV 9.5 fl (7.5-11.1) 02/16/17 07:00 Sodium 140 mmol/L (136-145) 02/16/17 07:00 Potassium 3.8 mmol/L (3.5-5.1) 02/16/17 07:00 Chloride 105 mmol/L (98-107) 02/16/17 07:00 Carbon Dioxide 30 mmol/L (21-32) 02/16/17 07:00 Anion Gap 5 (8-16) L 02/16/17 07:00 BUN 12 mg/dL (7-18) 02/16/17 07:00 Creatinine 0.8 mg/dL (0.7-1.3) 02/16/17 07:00 Creat Clearance w eGFR > 60 (>60) 02/16/17 07:00 Random Glucose 91 mg/dL (74-106) 02/16/17 07:00 Calcium 8.4 mg/dL (8.5-10.1) L 02/16/17 07:00 Total Bilirubin 0.5 mg/dL (0.2-1.0) D 02/16/17 07:00 AST 15 U/L (15-37) 02/16/17 07:00 ALT 39 U/L (12-78) 02/16/17 07:00 Alkaline Phosphatase 124 U/L (45-117) H 02/16/17 07:00 Total Protein 6.7 g/dl (6.4-8.2) 02/16/17 07:00 Albumin 3.9 g/dl (3.4-5.0) 02/16/17 07:00 Urine Color Yellow 02/16/17 00:00 Urine Appearance Cloudy 02/16/17 00:00 Urine pH 8.0 (5.0-8.0) D 02/16/17 00:00 Ur Specific [place] 1.021 (1.001-1.035) 02/16/17 00:00 Urine Protein Negative (NEGATIVE) 02/16/17 00:00 Urine Glucose (UA) Negative (NEGATIVE) 02/16/17 00:00 Urine Ketones Negative (NEGATIVE) 02/16/17 00:00 Urine Blood Negative (NEGATIVE) 02/16/17 00:00 Urine Nitrite Negative (NEGATIVE) 02/16/17 00:00 Urine Bilirubin Negative (NEGATIVE) 02/16/17 00:00 Urine Urobilinogen Negative mg/dL (0.2-1.0) 02/16/17 00:00 Ur Leukocyte Esterase Negative (NEGATIVE) 02/16/17 00:00 RPR Titer Nonreactive (NONREACTIVE) 02/16/17 07:00 lab noted - Treatment Hospital Course: Detox Protocol Followed, Responded well Patient has Accepted a Rehab Referral to: intensive out patient program as per counselor - Medication Discharge Medications: Ambulatory Orders NK [No Known Home Medication] 12/15/16 - Diagnosis (1) Depression (emotion) Current Visit: Yes Status: Suspected Qualifiers: Depression Type: dysthymia Qualified Code(s): F34.1 - Dysthymic disorder (2) Nicotine dependence Current Visit: Yes Status: Acute Qualifiers: Nicotine product type: cigarettes Substance use status: in withdrawal Qualified Code(s): F17.213 - Nicotine dependence, cigarettes, with withdrawal (3) Opioid dependence with withdrawal Current Visit: Yes Status: Acute - AMA Did Patient Leave Against Medical Advice: Yes
[2017-02-19] MEDS ORDERED: METHADONE HCL 5 MG TABLET (FOR DETOX USE ONLY) PO ONE (10:00)
[2017-02-19] MEDS ORDERED: METHADONE HCL 10 MG TABLET (FOR DETOX USE ONLY) PO ONE (10:00)
[2017-02-20] MEDS ORDERED: METHADONE HCL 5 MG TABLET (FOR DETOX USE ONLY) PO ONE (06:00)
== END 2017-02-18 10:30 | disposition left against medical advice (07) | DRG 770 ==
LOC: YASAS 15:26 → Y6N 21:09
PROVIDERS: ADMIT Internal Medicine; ATTEND Internal Medicine
PROC: HZ2ZZZZ Detoxification Services for Substance Abuse Treatment (ICD-10-PCS; principal; 2017-02-15)
DX: F11.23 Opioid dependence with withdrawal (principal); F12.20 Cannabis dependence, uncomplicated; F17.210 Nicotine dependence, cigarettes, uncomplicated; F34.1 Dysthymic disorder; F19.24 Other psychoactive substance dependence with psychoactive substance-induced mood disorder
CPT/HCPCS: 36415; 80053; 81003; 85027; 86593; 93005; 93010

== ENCOUNTER 2019-04-10 18:03 | Inpatient (IN) | payer OTHER ==
[2019-04-10 19:21] VITALS: BMI 34.0
--- NOTE | 2019-04-11 02:36 | HP ---
CIWA Score Nausea/Vomitin Muscle Tremors: 4-Moderate,w/Arms Extend Anxiety: 3 Agitation: 3 Paroxysmal Sweats: 2 Orientation: 0-Oriented Tacttile Disturbances: 0-None Auditory Disturbances: 0-None Visual Disturbances: 0-None Headache: 4-Moderately Severe CIWA-Ar Total Score: 18 - Admission Criteria OASAS Guidelines: Admission for Medically Managed Detox: Requires at least one of the followin. CIWA greater than 12 2. Seizures within the past 24 hours 3. Delirium tremens within the past 24 hours 4. Hallucinations within the past 24 hours 5. Acute intervention needed for co occurring medical disorder 6. Acute intervention needed for co occurring psychiatric disorder 7. Severe withdrawal that cannot be handled at a lower level of care (continued vomiting, continued diarrhea, abnormal vital signs) requiring intravenous medication and/or fluids 8. Admitting History and Physical - Smoking History Smoking history: Current every day smoker Have you smoked in the past 12 months: Yes Aproximately how many cigarettes per day: 10 - Alcohol/Substance Use Hx Alcohol Use: No Admission ROS [facility] - HPI Chief Complaint: Benzo withdrawal symptoms, on MMTP Allergies/Adverse Reactions: Allergies Allergy/AdvReac Type Severity Reaction Status Date / Time No Known Allergies Allergy Verified 04/10/19 19:07 History of Present Illness: 28 years old male with a year of benzo. dependence is seeking admission to detox. Patient was last admitted for the period 02/15/2017- 02/18/2017 for opiate dependence. He has medical history of GERD, eczema and psych. history and suicidal ideation at this time. He is on Methadone 70mg tablet oral daily with [facility]. Dose is yet to be verified by the nurse. Confidential Drug Utilization Report Search Terms: ivone lomax, 1990 Search Date: 04/11/2019 02:35:41 AM The Drug Utilization Report below displays all of the controlled substance prescriptions, if any, that your patient has filled in the last twelve months. The information displayed on this report is compiled from pharmacy submissions to the Department, and accurately reflects the information as submitted by the pharmacies. There are no results for the search terms that you entered. 2017 [facility] Department of Health - [place] of Narcotic Enforcement 04/11/2019 02:35:41 . Exam Limitations: No Limitations - Ebola screening Have you traveled outside of the country in the last 21 days: No (N) Have you had contact with anyone from an Ebola affected area: No Do you have a fever: No - Review of Systems Constitutional: Chills, Loss of Appetite, Malaise, Changes in sleep EENT: reports: Nose Congestion Respiratory: reports: No Symptoms reported Cardiac: reports: No Symptoms Reported GI: reports: No Symptoms Reported, Poor Appetite, Poor Fluid Intake, Abdominal cramping : reports: No Symptoms Reported Musculoskeletal: reports: Back Pain Integumentary: reports: Dryness, Flushing Neuro: reports: Tremors Endocrine: reports: No Symptoms Reported, Unexplained Weight Loss Psychiatric: reports: Mood/Affect Appropiate, Orientated x3, Anxious, Depressed Other Systems: Reviewed and Negative Patient History - Patient Medical History Hx Anemia: No Hx Asthma: No Hx Chronic Obstructive Pulmonary Disease (COPD): No Hx Cancer: No Hx Cardiac Disorders: No Hx Congestive Heart Failure: No Hx Hypertension: No Hx Hypercholesterolemia: No Hx Pacemaker: No HX Cerebrovascular Accident: No Hx Seizures: No Hx Dementia: No Hx Diabetes: No Hx Gastrointestinal Disorders: Yes (GERD) Hx Liver Disease: No Hx Genitourinary Disorders: No Hx Sexually Transmitted Disorders: No Hx Renal Disease (ESRD): No Hx Thyroid Disease: No Hx Human Immunodeficiency Virus (HIV): No Hx Hepatitis C: No Hx Depression: No Hx Suicide Attempt: No Hx Bipolar Disorder: No Hx Schizophrenia: No Other Medical History: Eczema - Patient Surgical History Past Surgical History: Yes Hx Neurologic Surgery: No Hx Cataract Extraction: No Hx Cardiac Surgery: No Hx Lung Surgery: No Hx Abdominal Surgery: No Hx Appendectomy: No Hx Cholecystectomy: No Hx Genitourinary Surgery: No Hx Section: No Hx Orthopedic Surgery: Yes (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 History Hx Alcohol Use: No Hx Substance Use: Yes Substance Use Type: Cocaine, Heroin, Marijuana, Prescribed Hx Substance Use Treatment: Yes ([facility]) - Substances abused Alprazolam (Xanax) Substance route: Oral Frequency: Daily Amount used: 3 or 4 of 2 mg Age of first use: 27 Date of last use: 04/09/19 Admission Physical Exam [facility] - Vital Signs Vital Signs: Vital Signs - 24 hr 04/10/19 19:06 Temperature 97.5 F L Pulse Rate 87 Respiratory 16 Rate Blood Pressure 143/83 - Physical General Appearance: Yes: Moderate Distress, Tremorous, Irritable, Anxious HEENTM: Yes: Within Normal Limits Respiratory: Yes: Lungs Clear, Normal Breath Sounds, No Respiratory Distress Neck: Yes: Within Normal Limits Breast: Yes: Breast Exam Deferred Cardiology: Yes: Regular Rhythm, Regular Rate Abdominal: Yes: Normal Bowel Sounds Genitourinary: Yes: Within Normal Limits Back: Yes: Normal Inspection Musculoskeletal: Yes: Back pain Extremities: Yes: Tremors Neurological: Yes: Within Normal Limits, Alert, Normal Mood/Affect, Other Lymphatic: Yes: Within Normal Limits - Diagnostic (1) GERD (gastroesophageal reflux disease) Current Visit: Yes Status: Chronic (2) Atopic eczema Current Visit: Yes Status: Chronic Qualifiers: Atopic dermatitis type: unspecified Qualified Code(s): L20.9 - Atopic dermatitis, unspecified (3) Methadone maintenance therapy patient Current Visit: Yes Status: Chronic (4) Cannabis dependence Current Visit: Yes Status: Chronic (5) Nicotine dependence Current Visit: Yes Status: Acute Qualifiers: Nicotine product type: cigarettes Substance use status: in withdrawal Qualified Code(s): F17.213 - Nicotine dependence, cigarettes, with withdrawal (6) Opioid dependence with withdrawal Current Visit: Yes Status: Acute (7) Depression (emotion) Current Visit: Yes Status: Chronic Qualifiers: Depression Type: dysthymia Qualified Code(s): F34.1 - Dysthymic disorder Cleared for Admission [facility] - Detox or Rehab [facility] Level of Care: Medically Managed Detox Regimen/Protocol: Valium Claeared for Rehab Admission: No Breathalyzer - Breathalyzer Breathalyzer: 0 Urine Drug Screen - Test Device Lot number: [id number] Expiration date: 10/16/20 - Control Is test valid?: Yes - Results Drug screen NEGATIVE: No Urine drug screen results: THC-Marijuana, FEN-Fentanyl, MOP-Opiates, MTD- Methadone, BZO-Benzodiazepines Inpatient Rehab Admission - Rehab Decision to Admit Inpatient rehab admission?: No
[2019-04-11] MEDS ORDERED: ACETAMINOPHEN 325 MG TABLET (FP) PO PRN ×2 (02:57)
[2019-04-11] MEDS ORDERED: BISMUTH SUBSALICYLATE 524 MG/30 ML UD PO PRN (02:57)
[2019-04-11] MEDS ORDERED: MAGNESIUM CITRATE 300 ML BOTTLE PO PRN (02:57)
[2019-04-11] MEDS ORDERED: NICOTINE POLACRILEX 2 MG GUM BUC PRN (02:57)
[2019-04-11] MEDS ORDERED: MENTHOL/PHENOL 1 EACH UD MM PRN (02:57)
[2019-04-11] MEDS ORDERED: MAG HYDROX/AL HYDROX/SIMETH 30 ML UNIT-DOSE CUP PO PRN (02:57)
[2019-04-11] MEDS ORDERED: hydrOXYzine PAMOATE 25 MG CAPSULE (FP) PO PRN (02:57)
[2019-04-11] MEDS ORDERED: MAGNESIUM HYDROX 2400MG/30ML ORAL SUSPENSION 30 ML CUP PO PRN (02:57)
[2019-04-11] MEDS ORDERED: IBUPROFEN 400 MG TABLET (FP) PO PRN (02:57)
[2019-04-11] MEDS: diazePAM 5 MG TABLET PO PRN ×2 (03:44→13:33)
[2019-04-11] MEDS: diazePAM 5 MG TABLET PO SCH ×4 (05:52→22:14)
[2019-04-11] MEDS ORDERED: METHADONE HCL 10 MG TABLET PO SCH (09:30)
[2019-04-11] MEDS ORDERED: METHADONE HCL 10 MG TABLET ONE (10:08)
[2019-04-11] MEDS: NICOTINE 14 MG/24 HOURS TOPICAL PATCH TD SCH (10:08)
[2019-04-11] MEDS ORDERED: METHADONE HCL 40 MG DISPERSABLE TABLET ONE (10:09)
[2019-04-11] MEDS: METHADONE 40 MG, METHADONE 30 MG PO SCH (10:09)
[2019-04-11] MEDS: PRENATAL VITAMINS W/ FOLIC ACID TABLET (FP) PO SCH (10:12)
--- NOTE | 2019-04-11 10:47 | PN ---
BHS CIWA - CIWA Score Nausea/Vomitin-Int. Nausea w/Dry Heave Muscle Tremors: 2 Anxiety: 2 Agitation: 0-Normal Activity Paroxysmal Sweats: 2 Orientation: 0-Oriented Tacttile Disturbances: 1-Very Mild Itch/Numbness Auditory Disturbances: 0-None Visual Disturbances: 1-Very Mild Sensitivity Headache: 1-Very Mild CIWA-Ar Total Score: 13 BHS Progress Note (SOAP) Subjective: Patient c/o of sweats, chills, decrease appetite Objective: 04/11/19 10:47 Vital Signs Temperature 97.6 F 04/11/19 09:00 Pulse Rate 88 04/11/19 09:00 Respiratory Rate 18 04/11/19 09:00 Blood Pressure 114/69 04/11/19 09:00 O2 Sat by Pulse Oximetry (%) labs pending Assessment: 04/11/19 15:04 Patient Aox3 no acute distress EENT WNL full ROM no gait disturbance withdrawal sx Plan: increase fluids continue detox continue to monitor
[2019-04-11] MEDS: METHOCARBAMOL 500 MG TABLET PO PRN (13:33)
--- NOTE | 2019-04-11 13:41 | EKG ---
Test Reason : Blood Pressure : / mmHG Vent. Rate : 065 BPM Atrial Rate : 065 BPM P-R Int : 154 ms QRS Dur : 100 ms QT Int : 424 ms P-R-T Axes : 041 063 022 degrees QTc Int : 440 ms NORMAL SINUS RHYTHM NORMAL ECG WHEN COMPARED WITH ECG OF 15-FEB-2017 22:10, NO SIGNIFICANT CHANGE WAS FOUND Confirmed by SHANTEL MEEK MD ([id number]) on 04/11/2019 1:41:26 PM Referred By: SAPNA DAUGHERTY PRODUCTION POSTING CLERK Confirmed By:SHANTEL MEEK MD
[2019-04-11] MEDS: THIAMINE HCL 100 MG TABLET (FP) PO SCH (22:14)
[2019-04-11] MEDS: MELATONIN 5 MG TABLETS PO PRN (22:14)
[2019-04-12] MEDS ORDERED: METHADONE HCL 10 MG TABLET ONE (04:04)
[2019-04-12] MEDS ORDERED: METHADONE HCL 40 MG DISPERSABLE TABLET ONE (04:05)
[2019-04-12] MEDS: METHADONE 40 MG, METHADONE 30 MG PO SCH (05:42)
[2019-04-12] MEDS: diazePAM 5 MG TABLET PO SCH ×2 (05:42→17:02)
[2019-04-12] MEDS: diazePAM 5 MG TABLET PO PRN ×2 (10:08→22:16)
[2019-04-12] MEDS: PRENATAL VITAMINS W/ FOLIC ACID TABLET (FP) PO SCH (10:09)
[2019-04-12] MEDS: NICOTINE 14 MG/24 HOURS TOPICAL PATCH TD SCH (10:09)
[2019-04-12 11:09] LABS: HEMATOCRIT 42.6 % (35.4-49); HEMOGLOBIN 14.1 GM/dL (11.7-16.9); MCH 29.8 pg (25.7-33.7); MCHC 33.2 g/dl (32.0-35.9); MEAN CELL VOLUME 89.7 fl (80-96); MEAN PLT VOLUME 10.2 fl (7.5-11.1); PLATELET COUNT 204 K/MM3 (134-434); RBC 4.74 M/mm3 (4.00-5.60); RDW 13.5 % (11.9-15.9); WHITE BLOOD COUNT 8.8 K/mm3 (4.0-10.0)
[2019-04-12 11:26] LABS: ALBUMIN 4.1 g/dl (3.4-5.0); BILIRUBIN,TOTAL 1.1 mg/dL (0.2-1); BLOOD UREA NITROGEN 11.8 mg/dL (7-18); CALCIUM 9.4 mg/dL (8.5-10.1); CREATININE 0.8 mg/dL (0.55-1.3); POTASSIUM 4.7 mmol/L (3.5-5.1); TOT PROT 7.8 g/dl (6.4-8.2)
--- NOTE | 2019-04-12 12:10 | PN ---
[facility] CIWA - CIWA Score Nausea/Vomitin-No Nausea/No Vomiting Muscle Tremors: 2 Anxiety: 3 Agitation: 1-Slight > Activity Paroxysmal Sweats: 3 Orientation: 0-Oriented Tacttile Disturbances: 0-None Auditory Disturbances: 0-None Visual Disturbances: 0-None Headache: 2-Mild CIWA-Ar Total Score: 11 S Progress Note (SOAP) Subjective: c/o sweats, anxiety, headache, and shakes. Objective: 04/12/19 12:08 Vital Signs 04/12/19 04/12/19 06:24 09:14 Temperature 97.2 F L 96.9 F L Pulse Rate 76 80 Respiratory 18 16 Rate Blood Pressure 113/77 124/82 Laboratory Last Values WBC 8.8 K/mm3 (4.0-10.0) 04/12/19 08:00 RBC 4.74 M/mm3 (4.00-5.60) 04/12/19 08:00 Hgb 14.1 GM/dL (11.7-16.9) 04/12/19 08:00 Hct 42.6 % (35.4-49) 04/12/19 08:00 MCV 89.7 fl (80-96) 04/12/19 08:00 MCH 29.8 pg (25.7-33.7) 04/12/19 08:00 MCHC 33.2 g/dl (32.0-35.9) 04/12/19 08:00 RDW 13.5 % (11.9-15.9) 04/12/19 08:00 Plt Count 204 K/MM3 (134-434) 04/12/19 08:00 MPV 10.2 fl (7.5-11.1) 04/12/19 08:00 Sodium 136 mmol/L (136-145) 04/12/19 08:00 Potassium 4.7 mmol/L (3.5-5.1) 04/12/19 08:00 Chloride 104 mmol/L (98-107) 04/12/19 08:00 Carbon Dioxide 23 mmol/L (21-32) 04/12/19 08:00 Anion Gap 9 MMOL/L (8-16) 04/12/19 08:00 BUN 11.8 mg/dL (7-18) 04/12/19 08:00 Creatinine 0.8 mg/dL (0.55-1.3) 04/12/19 08:00 Est GFR (CKD-EPI)AfAm 138.93 04/12/19 08:00 Est GFR (CKD-EPI)NonAf 119.87 04/12/19 08:00 Random Glucose 100 mg/dL (74-106) 04/12/19 08:00 Calcium 9.4 mg/dL (8.5-10.1) 04/12/19 08:00 Total Bilirubin 1.1 mg/dL (0.2-1) H 04/12/19 08:00 AST 47 U/L (15-37) H 04/12/19 08:00 ALT 60 U/L (13-61) 04/12/19 08:00 Alkaline Phosphatase 190 U/L (45-117) H 04/12/19 08:00 Total Protein 7.8 g/dl (6.4-8.2) 04/12/19 08:00 Albumin 4.1 g/dl (3.4-5.0) 04/12/19 08:00 Labs noted. Assessment: 04/12/19 12:08 AOX3, in no acute respiratory distress. Full ROM, ambulating in the unit. Withdrawal symptoms. Plan: continue detox. increase fluids.
[2019-04-12] MEDS: METHOCARBAMOL 500 MG TABLET PO PRN ×2 (17:02→22:16)
[2019-04-12] MEDS: MELATONIN 5 MG TABLETS PO PRN (22:16)
[2019-04-12] MEDS: THIAMINE HCL 100 MG TABLET (FP) PO SCH (22:16)
[2019-04-13] MEDS ORDERED: METHADONE HCL 40 MG DISPERSABLE TABLET ONE (03:43)
[2019-04-13] MEDS ORDERED: METHADONE HCL 10 MG TABLET ONE (03:43)
[2019-04-13] MEDS ORDERED: diazePAM 5 MG TABLET PO ONE (06:00)
[2019-04-13] MEDS: METHADONE 40 MG, METHADONE 30 MG PO SCH (06:24)
[2019-04-13 09:36] VITALS: BP 113/70; PULSE 89; TEMP 97.8
--- NOTE | 2019-04-13 11:57 | DS ---
[facility] Detox Discharge Summary Admission Date: 04/11/19 Discharge Date: 04/13/19 - History Present History: Sedative Dependence Additional Comments: 28 years old male admitted on 04/11/19 for benzo withdrawal sx management treated with valium detox regiment patient has completed valium regimen and tolerated well alert o riented x 3 cardiac s1s2 regular rate rhythm respiratory clear lungs bilaterally on auscultation extremities full range of motion Pertinent Past History: patient may return to methadone maintenance program for behavior and psychosocial therapies - Physical Exam Results Vital Signs: Vital Signs Temperature 97.8 F 04/13/19 09:33 Pulse Rate 89 04/13/19 09:33 Respiratory Rate 18 04/13/19 09:33 Blood Pressure 113/70 04/13/19 09:33 O2 Sat by Pulse Oximetry (%) Pertinent Admission Physical Exam Findings: benzo withdrawal Laboratory Last Values WBC 8.8 K/mm3 (4.0-10.0) 04/12/19 08:00 RBC 4.74 M/mm3 (4.00-5.60) 04/12/19 08:00 Hgb 14.1 GM/dL (11.7-16.9) 04/12/19 08:00 Hct 42.6 % (35.4-49) 04/12/19 08:00 MCV 89.7 fl (80-96) 04/12/19 08:00 MCH 29.8 pg (25.7-33.7) 04/12/19 08:00 MCHC 33.2 g/dl (32.0-35.9) 04/12/19 08:00 RDW 13.5 % (11.9-15.9) 04/12/19 08:00 Plt Count 204 K/MM3 (134-434) 04/12/19 08:00 MPV 10.2 fl (7.5-11.1) 04/12/19 08:00 Sodium 136 mmol/L (136-145) 04/12/19 08:00 Potassium 4.7 mmol/L (3.5-5.1) 04/12/19 08:00 Chloride 104 mmol/L (98-107) 04/12/19 08:00 Carbon Dioxide 23 mmol/L (21-32) 04/12/19 08:00 Anion Gap 9 MMOL/L (8-16) 04/12/19 08:00 BUN 11.8 mg/dL (7-18) 04/12/19 08:00 Creatinine 0.8 mg/dL (0.55-1.3) 04/12/19 08:00 Est GFR (CKD-EPI)AfAm 138.93 04/12/19 08:00 Est GFR (CKD-EPI)NonAf 119.87 04/12/19 08:00 Random Glucose 100 mg/dL (74-106) 04/12/19 08:00 Calcium 9.4 mg/dL (8.5-10.1) 04/12/19 08:00 Total Bilirubin 1.1 mg/dL (0.2-1) H 04/12/19 08:00 AST 47 U/L (15-37) H 04/12/19 08:00 ALT 60 U/L (13-61) 04/12/19 08:00 Alkaline Phosphatase 190 U/L (45-117) H 04/12/19 08:00 Total Protein 7.8 g/dl (6.4-8.2) 04/12/19 08:00 Albumin 4.1 g/dl (3.4-5.0) 04/12/19 08:00 RPR Titer Nonreactive (NONREACTIVE) 04/12/19 08:00 lab noted - Treatment Hospital Course: Detox Protocol Followed, Detoxed Safely, Responded well, Discharged Condition Good, Rehab Referral Accepted Patient has Accepted a [facility] - Medication Discharge Medications: Ambulatory Orders NK [No Known Home Medication] 12/15/16 - Diagnosis (1) Sedative, hypnotic or anxiolytic dependence, uncomplicated Status: Acute (2) Nicotine dependence Status: Acute Qualifiers: Nicotine product type: cigarettes Substance use status: in withdrawal Qualified Code(s): F17.213 - Nicotine dependence, cigarettes, with withdrawal (3) Substance induced mood disorder Status: Suspected (4) GERD (gastroesophageal reflux disease) Status: Chronic Qualifiers: Esophagitis presence: without esophagitis Qualified Code(s): K21.9 - Gastro -esophageal reflux disease without esophagitis (5) Methadone maintenance therapy patient Status: Chronic - AMA Did Patient Leave Against Medical Advice: No CIWA Score - CIWA Score Nausea/Vomitin-No Nausea/No Vomiting Muscle Tremors: 1-None Visible, but [place] Anxiety: 2 Agitation: 0-Normal Activity Paroxysmal Sweats: 2 Orientation: 0-Oriented Tacttile Disturbances: 0-None Auditory Disturbances: 0-None Visual Disturbances: 0-None Headache: 1-Very Mild CIWA-Ar Total Score: 6
== END 2019-04-13 09:48 | disposition home or self-care (01) | DRG 773 ==
LOC: YASAS 18:03 → Y3N 04-11 02:45
PROVIDERS: ADMIT Allergy & Immunology; ATTEND Allergy & Immunology
PROC: HZ2ZZZZ Detoxification Services for Substance Abuse Treatment (ICD-10-PCS; principal; 2019-04-11)
DX: F13.230 Sedative, hypnotic or anxiolytic dependence with withdrawal, uncomplicated (principal); F11.23 Opioid dependence with withdrawal; F12.20 Cannabis dependence, uncomplicated; F17.213 Nicotine dependence, cigarettes, with withdrawal; F19.24 Other psychoactive substance dependence with psychoactive substance-induced mood disorder; F34.1 Dysthymic disorder; K21.9 Gastro-esophageal reflux disease without esophagitis; L20.9 Atopic dermatitis, unspecified
CPT/HCPCS: 36415; 80053; 85027; 86593; 93005; 93010

== ENCOUNTER 2019-05-31 13:17 | Inpatient (IN) | payer OTHER ==
--- NOTE | 2019-05-31 13:41 | BHS.RME ---
Substance Use & Tx History - Substance Use History Benzodiazepines Substance amount: 8 to 10 mgs of xanax Frequency of use: Daily Substance route: Oral Date of Last Use: 05/30/19 Opiates (Heroin) Substance amount: 4 bags Frequency of use: Daily Substance route: Inhalation (ex: sniffing or snorting) Date of Last Use: 05/30/19 - Last Treatment Date of last treatment: 04/11/2019 04/13/2019 Where was last treatment: Detox Physical/Psych/Mental Status - Behavior General Behavior: Increased activity (restlessness, agitation) Eye Contact: Normal - Cooperativeness Cooperativeness: Cooperative - Thinking Thought Processes: Logical Thought content: Future oriented - Physical Health Problems Is patient presently having any pain?: No Does patient presently have any injuries (include location): No Does patient currently have a fever: No CIWA Nausea/Vomitin Muscle Tremors: 3 Anxiety: 3 Agitation: 3 Paroxysmal Sweats: 1-Minimal Palms Moist Orientation: 0-Oriented Tacttile Disturbances: 1-Very Mild Itch/Numbness Auditory Disturbances: 0-None Visual Disturbances: 0-None Headache: 2-Mild (patient is on methadone maintenance 70 mgs/day,last meidcated today,stated left the take home bottle at home,anxiety,) CIWA-Ar Total Score: 15
--- NOTE | 2019-05-31 15:25 | HP ---
CIWA Score Nausea/Vomitin Muscle Tremors: 3 Anxiety: 3 Agitation: 3 Paroxysmal Sweats: 1-Minimal Palms Moist Orientation: 0-Oriented Tacttile Disturbances: 1-Very Mild Itch/Numbness Auditory Disturbances: 0-None Visual Disturbances: 0-None Headache: 2-Mild (patient is on methadone maintenance 70 mgs/day,last meidcated today,stated left the take home bottle at home,anxiety,) CIWA-Ar Total Score: 15 - Admission Criteria [facility] Guidelines: Admission for Medically Managed Detox: Requires at least one of the followin. CIWA greater than 12 2. Seizures within the past 24 hours 3. Delirium tremens within the past 24 hours 4. Hallucinations within the past 24 hours 5. Acute intervention needed for co occurring medical disorder 6. Acute intervention needed for co occurring psychiatric disorder 7. Severe withdrawal that cannot be handled at a lower level of care (continued vomiting, continued diarrhea, abnormal vital signs) requiring intravenous medication and/or fluids 8. Admitting History and Physical - Admission Chief Complaint: i want to to stop using benzo,heroin History of Present Illness: this 28 years old male with benzodiazepam dependence,heroin abused,mmtp 70 mgs/day,last medicated today multiple admissions in the past,last 04/11/2019 to 04/13/2019 not completed keep relapsing rash both legs 2 years had take home bottle but leave it at home History Source: Patient Limitations to Obtaining History: No Limitations - Past Medical History Psych: Yes: Anxiety, Depression Musculoskeletal: Yes: Chronic low back pain (back sugery for benign tumor in 2014 at [facility]) - Smoking History Smoking history: Current every day smoker Have you smoked in the past 12 months: Yes Aproximately how many cigarettes per day: 10 - Alcohol/Substance Use Hx Alcohol Use: No Admission ROS S - HPI Chief Complaint: i am here to stop using xanax,heroin abused Allergies/Adverse Reactions: Allergies Allergy/AdvReac Type Severity Reaction Status Date / Time No Known Allergies Allergy Verified 05/31/19 16:25 History of Present Illness: this 28 years old male with xanax dependence,heroin abused,mmtp 70 mgs/day,last medicted today,stated leave the take home bottle at home denied seizure denied syncope anxiety and depression last detox [facility] 04/11/2019 to 04/13/2019 no significant period of sobriety plan to go to rehab after detox Exam Limitations: No Limitations - Ebola screening Have you traveled outside of the country in the last 21 days: No Have you had contact with anyone from an Ebola affected area: No Have you been sick,other than usual withdrawal symptoms: No Do you have a fever: No - Review of Systems Constitutional: Loss of Appetite, Malaise, Night Sweats, Changes in sleep, Weakness EENT: reports: Nose Congestion Respiratory: reports: No Symptoms reported Cardiac: reports: No Symptoms Reported GI: reports: Nausea, Poor Appetite, Abdominal cramping : reports: No Symptoms Reported Musculoskeletal: reports: Back Pain, Joint Pain, Muscle Pain, Other (history of back surgery) Integumentary: reports: Dryness Neuro: reports: Tremors Endocrine: reports: No Symptoms Reported Hematology: reports: No Symptoms Reported Psychiatric: reports: No Sypmtoms Reported, Judgement Intact, Mood/Affect Appropiate, Orientated x3, Anxious, Depressed Patient History - Patient Medical History Hx Anemia: No Hx Asthma: No Hx Chronic Obstructive Pulmonary Disease (COPD): No Hx Cancer: No Hx Cardiac Disorders: No Hx Congestive Heart Failure: No Hx Hypertension: No Hx Hypercholesterolemia: No Hx Pacemaker: No HX Cerebrovascular Accident: No Hx Seizures: No Hx Dementia: No Hx Diabetes: No Hx Gastrointestinal Disorders: Yes (GERD) Hx Liver Disease: No Hx Genitourinary Disorders: No Hx Sexually Transmitted Disorders: No Hx Renal Disease (ESRD): No Hx Thyroid Disease: No Hx Human Immunodeficiency Virus (HIV): No (last 04/2019 neative) Hx Hepatitis C: No Hx Depression: Yes (anxiety,) Hx Suicide Attempt: No Hx Bipolar Disorder: No Hx Schizophrenia: No Other Medical History: no suicidal,nohomicidal,insomnia,back surgery in 2014 - Patient Surgical History Past Surgical History: Yes Hx Neurologic Surgery: No Hx Cataract Extraction: No Hx Cardiac Surgery: No Hx Lung Surgery: No Hx Breast Surgery: No Hx Breast Biopsy: No Hx Abdominal Surgery: No Hx Appendectomy: No Hx Cholecystectomy: No Hx Genitourinary Surgery: No Hx Section: No Hx Orthopedic Surgery: Yes (TUMOR REMOVED FROM SPINE-2014) Anesthesia Reaction: No - PPD History Previous Implant?: Yes Documented Results: Negative w/proof Date: 04/13/19 Results: 0mm PPD to be Administered?: No - Smoking Cessation Smoking history: Current every day smoker Have you smoked in the past 12 months: Yes Aproximately how many cigarettes per day: 10 Hx Chewing Tobacco Use: No Initiated information on smoking cessation: Yes 'Breaking Loose' booklet given: 05/31/19 - Substance & Tx. History Hx Alcohol Use: No Hx Substance Use: Yes Substance Use Type: Heroin, Tranquilizers Hx Substance Use Treatment: Yes ([facility] 04/11/2019 to 04/13/2019 nott completed) - Substances abused Alprazolam (Xanax) Substance route: Oral Frequency: Daily Amount used: 8 mgs to 10 mgs Age of first use: 27 Date of last use: 05/30/19 Heroin Substance route: Inhalation Frequency: Daily Amount used: 4 to 5 bags Age of first use: 27 Date of last use: 05/30/19 Admission Physical Exam [facility] - Physical General Appearance: Yes: Moderate Distress, Tremorous, Irritable, Sweating, Anxious HEENTM: Yes: Normal ENT Inspection, ERIC, Pharynx Normal Respiratory: Yes: Lungs Clear, Normal Breath Sounds, No Respiratory Distress Neck: Yes: Within Normal Limits, Supple, Trachea in good position Breast: Yes: Within Normal Limits Cardiology: Yes: Within Normal Limits, Regular Rhythm, Regular Rate, S1, S2 Abdominal: Yes: Normal Bowel Sounds, Non Tender, Soft Genitourinary: Yes: Within Normal Limits Back: Yes: Muscle Spasm Musculoskeletal: Yes: Back pain, Muscle Pain, Other (scar in midline of back) Extremities: Yes: Tremors Neurological: Yes: 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 intact, Fully Oriented, Alert, Motor Strength 5/5 Integumentary: Yes: Within Normal Limits, Dry Lymphatic: Yes: Within Normal Limits - Diagnostic (1) Sedative, hypnotic or anxiolytic dependence, uncomplicated Current Visit: No Status: Acute (2) Heroin abuse Current Visit: Yes Status: Acute (3) Nicotine dependence Current Visit: No Status: Acute Qualifiers: Nicotine product type: cigarettes Substance use status: in withdrawal Qualified Code(s): F17.213 - Nicotine dependence, cigarettes, with withdrawal (4) Atopic eczema Current Visit: No Status: Chronic Qualifiers: Atopic dermatitis type: unspecified Qualified Code(s): L20.9 - Atopic dermatitis, unspecified (5) Methadone maintenance therapy patient Current Visit: No Status: Chronic (6) History of low back pain Current Visit: Yes Status: Chronic Cleared for Admission [facility] - Detox or Rehab [facility] Level of Care: Medically Managed Detox Regimen/Protocol: Valium Breathalyzer - Breathalyzer Breathalyzer: 0 Urine Drug Screen - Test Device Lot number: [id number] Expiration date: 02/15/21 - Control Is test valid?: Yes - Results Drug screen NEGATIVE: No Urine drug screen results: LALITHA-Cocaine, FEN-Fentanyl, MOP-Opiates, MTD- Methadone, BZO-Benzodiazepines Inpatient Rehab Admission - Rehab Decision to Admit Inpatient rehab admission?: No
[2019-05-31] MEDS ORDERED: MAGNESIUM HYDROX 2400MG/30ML ORAL SUSPENSION 30 ML CUP PO PRN (15:46)
[2019-05-31] MEDS ORDERED: METHOCARBAMOL 500 MG TABLET PO PRN (15:46)
[2019-05-31] MEDS ORDERED: MAGNESIUM CITRATE 300 ML BOTTLE PO PRN (15:46)
[2019-05-31] MEDS ORDERED: MENTHOL/PHENOL 1 EACH UD MM PRN (15:46)
[2019-05-31] MEDS ORDERED: diazePAM 5 MG TABLET PO PRN (15:46)
[2019-05-31] MEDS ORDERED: IBUPROFEN 400 MG TABLET (FP) PO PRN (15:46)
[2019-05-31] MEDS ORDERED: BISMUTH SUBSALICYLATE 524 MG/30 ML UD PO PRN (15:46)
[2019-05-31] MEDS ORDERED: MAG HYDROX/AL HYDROX/SIMETH 30 ML UNIT-DOSE CUP PO PRN (15:46)
[2019-05-31] MEDS ORDERED: ACETAMINOPHEN 325 MG TABLET (FP) PO PRN ×2 (15:46)
[2019-05-31] MEDS ORDERED: ONDANSETRON *ODT* 4 MG TABLET SL ONE (16:15)
[2019-05-31] MEDS ORDERED: diazePAM 5 MG TABLET PO ONE (16:15)
[2019-05-31 16:30] VITALS: BMI 34.7
[2019-05-31] MEDS: NICOTINE 21 MG/24 HOURS TOPICAL PATCH TD SCH (17:35)
[2019-05-31] MEDS: hydrOXYzine PAMOATE 25 MG CAPSULE (FP) PO SCH ×2 (17:36→22:49)
[2019-05-31] MEDS: THIAMINE HCL 100 MG TABLET (FP) PO SCH (22:49)
[2019-05-31] MEDS: MELATONIN 5 MG TABLETS PO SCH (22:49)
[2019-05-31] MEDS: diazePAM 5 MG TABLET PO SCH (22:49)
[2019-05-31] MEDS: BETAMETHASONE DIPR 0.05% CREAM 15 GM TUBE TP SCH (22:50)
[2019-06-01] MEDS ORDERED: METHADONE HCL 10 MG TABLET PO ONE (06:00)
[2019-06-01] MEDS: hydrOXYzine PAMOATE 25 MG CAPSULE (FP) PO SCH ×5 (06:49→22:12)
[2019-06-01] MEDS: diazePAM 5 MG TABLET PO SCH ×3 (06:49→22:12)
[2019-06-01] MEDS ORDERED: cloNIDine HCL 0.1 MG TABLET PO PRN (10:02)
--- NOTE | 2019-06-01 10:03 | PN ---
S CIWA - CIWA Score Nausea/Vomitin-No Nausea/No Vomiting Muscle Tremors: 2 Anxiety: 2 Agitation: 0-Normal Activity Paroxysmal Sweats: 1-Minimal Palms Moist Orientation: 0-Oriented Tacttile Disturbances: 0-None Auditory Disturbances: 0-None Visual Disturbances: 2-Mild Sensitivity Headache: 3-Moderate (body aches) CIWA-Ar Total Score: 10 [facility]HS Progress Note (SOAP) Subjective: 28 years old male admitted on 05/31/19 for benzo withdrawal sx management treating with valium detox regiment taking methadone 70 mg po daily unable to verify the dosage at this time received methadone 20 mg po today body aches joints pain supportive therapies applied Objective: 06/01/19 10:01 Vital Signs Temperature 98.2 F 06/01/19 08:31 Pulse Rate 92 H 06/01/19 08:31 Respiratory Rate 18 06/01/19 08:31 Blood Pressure 140/72 06/01/19 08:31 O2 Sat by Pulse Oximetry (%) 06/01/19 10:01 lab pending bp elevation begin clonidine 0.1 mg po q6h for opiate withdrawal Assessment: 06/01/19 10:03 benzo withdrawal Plan: valium regiment
--- NOTE | 2019-06-01 10:09 | CONSULT ---
[facility] Psychiatric Consult - Data Date of interview: 06/01/19 Admission source: [facility] Identifying data: Patient is a 28 year old single male, father of three, unemployed, domiciled, and is currently being supported by his girlfriend. This is one of multiple admissions for patient. Patient admitted to for benzodiazepine dependence. Substance Abuse History: Smoking Cessation. Smoking history: Current every day smoker. Have you smoked in the past 12 months: Yes. Aproximately how many cigarettes per day: 10. Hx Chewing Tobacco Use: No. Initiated information on smoking cessation: Yes. 'Breaking Loose' booklet given: 05/31/19. - Substance & Tx. History. Hx Alcohol Use: No. Hx Substance Use: Yes. Substance Use Type: Heroin, Tranquilizers. Hx Substance Use Treatment: Yes ([facility] 04/11/2019 to 04/13/2019 nott completed). - Substances abused. Alprazolam (Xanax). Substance route: Oral. Frequency: Daily. Amount used: 8 mgs to 10 mgs. Age of first use: 27. Date of last use: 05/30/19. Heroin. Substance route: Inhalation. Frequency: Daily. Amount used: 4 to 5 bags. Age of first use: 27. Date of last use: 05/30/19 Medical History: Signifant for GERD and back surgery in 2013. Psychiatric History: Patient denies history of psychiatric hospitalization, outpatient care and suicide attempt. Physical/Sexual Abuse/Trauma History: denies. Mental Status Exam - Mental Status Exam Alert and Oriented to: Time, Place, Person Cognitive Function: Good Patient Appearance: Well Groomed Mood: Withdrawn Affect: Mood Congruent Patient Behavior: Fatigued, Cooperative Speech Pattern: Appropriate Voice Loudness: Moderately Soft/Quiet Thought Process: Intact, Goal Oriented Thought Disorder: Not Present Hallucinations: Denies Suicidal Ideation: Denies Homicidal Ideation: Denies Insight/Judgement: Poor Sleep: Fair Appetite: Fair Muscle strength/Tone: Normal Gait/Station: Normal Psychiatric Findings - Problem List ([place] 1, 2,3) (1) Cocaine dependence Current Visit: Yes Status: Acute (2) Sedative, hypnotic or anxiolytic dependence, uncomplicated Current Visit: Yes Status: Acute (3) Substance induced mood disorder Current Visit: Yes Status: Suspected (4) Opioid use disorder Current Visit: Yes Status: Chronic - Initial Treatment Plan Initial Treatment Plan: Psychoeducation provided. Detoxification in progress. Observation.
[2019-06-01] MEDS: PRENATAL VITAMINS W/ FOLIC ACID TABLET (FP) PO SCH (10:19)
[2019-06-01] MEDS: BETAMETHASONE DIPR 0.05% CREAM 15 GM TUBE TP SCH ×2 (10:19→22:13)
[2019-06-01] MEDS: NICOTINE 21 MG/24 HOURS TOPICAL PATCH TD SCH (10:20)
[2019-06-01 12:08] LABS: HEMOGLOBIN 14.4 GM/dL (11.7-16.9); MCH 29.9 pg (25.7-33.7); MCHC 33.4 g/dl (32.0-35.9); MEAN CELL VOLUME 89.3 fl (80-96); PLATELET COUNT 241 K/MM3 (134-434); RBC 4.82 M/mm3 (4.00-5.60); WHITE BLOOD COUNT 7.4 K/mm3 (4.0-10.0)
[2019-06-01 12:18] LABS: ALBUMIN 3.8 g/dl (3.4-5.0); BILIRUBIN,TOTAL 0.4 mg/dL (0.2-1); BLOOD UREA NITROGEN 12.2 mg/dL (7-18); CALCIUM 8.6 mg/dL (8.5-10.1); TOT PROT 7.1 g/dl (6.4-8.2)
[2019-06-01] MEDS: MELATONIN 5 MG TABLETS PO SCH (22:12)
[2019-06-01] MEDS: THIAMINE HCL 100 MG TABLET (FP) PO SCH (22:12)
[2019-06-02] MEDS: hydrOXYzine PAMOATE 25 MG CAPSULE (FP) PO SCH ×5 (06:44→22:33)
[2019-06-02] MEDS: diazePAM 5 MG TABLET PO SCH ×2 (07:19→17:55)
--- NOTE | 2019-06-02 09:46 | PN ---
S CIWA - CIWA Score Nausea/Vomitin-No Nausea/No Vomiting Muscle Tremors: 2 Anxiety: 2 Agitation: 0-Normal Activity Paroxysmal Sweats: 1-Minimal Palms Moist Orientation: 0-Oriented Tacttile Disturbances: 1-Very Mild Itch/Numbness Auditory Disturbances: 0-None Visual Disturbances: 2-Mild Sensitivity Headache: 0-None Present CIWA-Ar Total Score: 8 S Progress Note (SOAP) Subjective: 28 years old male admitted on 05/31/19 for benzo withdrawal sx management treating with valium detox regiment received methadone 70 mg po today feeling better ambulating on hallway social with peers in day room Mr Birmingham prefers return to methadone program for medical and mental treatment Objective: 06/02/19 09:46 Vital Signs Temperature 97.0 F L 06/02/19 08:50 Pulse Rate 87 06/02/19 08:50 Respiratory Rate 18 06/02/19 08:50 Blood Pressure 125/76 06/02/19 08:50 O2 Sat by Pulse Oximetry (%) Laboratory Last Values WBC 7.4 K/mm3 (4.0-10.0) 06/01/19 07:00 RBC 4.82 M/mm3 (4.00-5.60) 06/01/19 07:00 Hgb 14.4 GM/dL (11.7-16.9) 06/01/19 07:00 Hct 43.0 % (35.4-49) 06/01/19 07:00 MCV 89.3 fl (80-96) 06/01/19 07:00 MCH 29.9 pg (25.7-33.7) 06/01/19 07:00 MCHC 33.4 g/dl (32.0-35.9) 06/01/19 07:00 RDW 14.0 % (11.9-15.9) 06/01/19 07:00 Plt Count 241 K/MM3 (134-434) 06/01/19 07:00 MPV 9.0 fl (7.5-11.1) D 06/01/19 07:00 Sodium 138 mmol/L (136-145) 06/01/19 07:00 Potassium 4.0 mmol/L (3.5-5.1) 06/01/19 07:00 Chloride 105 mmol/L (98-107) 06/01/19 07:00 Carbon Dioxide 28 mmol/L (21-32) 06/01/19 07:00 Anion Gap 5 MMOL/L (8-16) L 06/01/19 07:00 BUN 12.2 mg/dL (7-18) 06/01/19 07:00 Creatinine 1.0 mg/dL (0.55-1.3) 06/01/19 07:00 Est GFR (CKD-EPI)AfAm 116.54 06/01/19 07:00 Est GFR (CKD-EPI)NonAf 100.55 06/01/19 07:00 Random Glucose 88 mg/dL (74-106) 06/01/19 07:00 Calcium 8.6 mg/dL (8.5-10.1) 06/01/19 07:00 Total Bilirubin 0.4 mg/dL (0.2-1) 06/01/19 07:00 AST 17 U/L (15-37) 06/01/19 07:00 ALT 30 U/L (13-61) 06/01/19 07:00 Alkaline Phosphatase 166 U/L (45-117) H 06/01/19 07:00 Total Protein 7.1 g/dl (6.4-8.2) 06/01/19 07:00 Albumin 3.8 g/dl (3.4-5.0) 06/01/19 07:00 RPR Titer Nonreactive (NONREACTIVE) 06/01/19 07:00 lab noted Assessment: 06/02/19 09:46 benzo withdrawal Plan: valium regiment
[2019-06-02] MEDS: BETAMETHASONE DIPR 0.05% CREAM 15 GM TUBE TP SCH ×2 (10:32→22:32)
[2019-06-02] MEDS: NICOTINE 21 MG/24 HOURS TOPICAL PATCH TD SCH (10:32)
[2019-06-02] MEDS: PRENATAL VITAMINS W/ FOLIC ACID TABLET (FP) PO SCH (10:32)
[2019-06-02] MEDS ORDERED: METHADONE HCL 10 MG TABLET PO ONE (11:14)
[2019-06-02] MEDS ORDERED: METHADONE 40 MG, METHADONE 30 MG PO ONE (11:40)
[2019-06-02] MEDS ORDERED: METHADONE HCL 10 MG TABLET ONE (11:47)
[2019-06-02] MEDS ORDERED: METHADONE HCL 40 MG DISPERSABLE TABLET ONE (11:48)
[2019-06-02] MEDS: MELATONIN 5 MG TABLETS PO SCH (22:33)
[2019-06-02] MEDS: THIAMINE HCL 100 MG TABLET (FP) PO SCH (22:33)
[2019-06-02 22:51] LABS: PH,URINE 5.5 (5.0-8.0); URINE APPEARANCE TURBID; URINE BILIRUBIN NEGATIVE (NEGATIVE); URINE COLOR YELLOW; URINE GLUCOSE (UA) NEGATIVE (NEGATIVE); URINE KETONE TRACE (NEGATIVE); URINE LEUK ESTERASE NEGATIVE (NEGATIVE); URINE NITRITE NEGATIVE (NEGATIVE); URINE PROTEIN NEGATIVE (NEGATIVE); URINE UROBILINOGEN 0.2 mg/dL (0.2-1.0)
[2019-06-03] MEDS ORDERED: METHADONE HCL 10 MG TABLET ONE (04:10)
[2019-06-03] MEDS ORDERED: METHADONE HCL 40 MG DISPERSABLE TABLET ONE (04:10)
[2019-06-03] MEDS ORDERED: METHADONE HCL 10 MG TABLET PO SCH (06:00)
[2019-06-03] MEDS ORDERED: METHADONE 40 MG, METHADONE 30 MG PO SCH (06:00)
[2019-06-03] MEDS ORDERED: diazePAM 5 MG TABLET PO ONE (06:00)
[2019-06-03] MEDS: hydrOXYzine PAMOATE 25 MG CAPSULE (FP) PO SCH (06:18)
[2019-06-03 06:26] VITALS: BP 126/74; PULSE 89; TEMP 97.6
--- NOTE | 2019-06-03 09:46 | DS ---
[facility] Detox Discharge Summary Admission Date: 05/31/19 Discharge Date: 06/03/19 - History Present History: Sedative Dependence Additional Comments: 28 years old male admitted on 05/31/19 for benzo withdrawal sx management treated with valium detox regiment Mr Birmingham has completed the valium regiment and is tolerated well seen by psychiatrist no medical intervention at this time alert oriented x 3 cardiac s1s2 regular rate rhythm respiratory clear lung bilaterally on auscultation extremities full range of motion Pertinent Past History: time for discharge 34 minutes patient may return to methadone program for medical and mental issues - Physical Exam Results Vital Signs: Vital Signs Temperature 97.6 F 06/03/19 06:26 Pulse Rate 89 06/03/19 06:26 Respiratory Rate 18 06/03/19 06:26 Blood Pressure 126/74 06/03/19 06:26 O2 Sat by Pulse Oximetry (%) Pertinent Admission Physical Exam Findings: benzo withdrawal Vital Signs Temperature 97.6 F 06/03/19 06:26 Pulse Rate 89 06/03/19 06:26 Respiratory Rate 18 06/03/19 06:26 Blood Pressure 126/74 06/03/19 06:26 O2 Sat by Pulse Oximetry (%) Laboratory Last Values WBC 7.4 K/mm3 (4.0-10.0) 06/01/19 07:00 RBC 4.82 M/mm3 (4.00-5.60) 06/01/19 07:00 Hgb 14.4 GM/dL (11.7-16.9) 06/01/19 07:00 Hct 43.0 % (35.4-49) 06/01/19 07:00 MCV 89.3 fl (80-96) 06/01/19 07:00 MCH 29.9 pg (25.7-33.7) 06/01/19 07:00 MCHC 33.4 g/dl (32.0-35.9) 06/01/19 07:00 RDW 14.0 % (11.9-15.9) 06/01/19 07:00 Plt Count 241 K/MM3 (134-434) 06/01/19 07:00 MPV 9.0 fl (7.5-11.1) D 06/01/19 07:00 Sodium 138 mmol/L (136-145) 06/01/19 07:00 Potassium 4.0 mmol/L (3.5-5.1) 06/01/19 07:00 Chloride 105 mmol/L (98-107) 06/01/19 07:00 Carbon Dioxide 28 mmol/L (21-32) 06/01/19 07:00 Anion Gap 5 MMOL/L (8-16) L 06/01/19 07:00 BUN 12.2 mg/dL (7-18) 06/01/19 07:00 Creatinine 1.0 mg/dL (0.55-1.3) 06/01/19 07:00 Est GFR (CKD-EPI)AfAm 116.54 06/01/19 07:00 Est GFR (CKD-EPI)NonAf 100.55 06/01/19 07:00 Random Glucose 88 mg/dL (74-106) 06/01/19 07:00 Calcium 8.6 mg/dL (8.5-10.1) 06/01/19 07:00 Total Bilirubin 0.4 mg/dL (0.2-1) 06/01/19 07:00 AST 17 U/L (15-37) 06/01/19 07:00 ALT 30 U/L (13-61) 06/01/19 07:00 Alkaline Phosphatase 166 U/L (45-117) H 06/01/19 07:00 Total Protein 7.1 g/dl (6.4-8.2) 06/01/19 07:00 Albumin 3.8 g/dl (3.4-5.0) 06/01/19 07:00 Urine Color Yellow 06/02/19 18:06 Urine Appearance Turbid 06/02/19 18:06 Urine pH 5.5 (5.0-8.0) D 06/02/19 18:06 Ur Specific [place] 1.030 (1.010-1.035) 06/02/19 18:06 Urine Protein Negative (NEGATIVE) 06/02/19 18:06 Urine Glucose (UA) Negative (NEGATIVE) 06/02/19 18:06 Urine Ketones Trace (NEGATIVE) H 06/02/19 18:06 Urine Blood Negative (NEGATIVE) 06/02/19 18:06 Urine Nitrite Negative (NEGATIVE) 06/02/19 18:06 Urine Bilirubin Negative (NEGATIVE) 06/02/19 18:06 Urine Urobilinogen 0.2 mg/dL (0.2-1.0) 06/02/19 18:06 Ur Leukocyte Esterase Negative (NEGATIVE) 06/02/19 18:06 RPR Titer Nonreactive (NONREACTIVE) 06/01/19 07:00 lab noted - Treatment Hospital Course: Detox Protocol Followed, Detoxed Safely, Responded well, Disc harged Condition Good, Rehab Referral Accepted Patient [facility] Accepted [facility] - Medication Discharge Medications: Ambulatory Orders NK [No Known Home Medication] 12/15/16 - Diagnosis (1) Nicotine dependence Status: Acute Qualifiers: Nicotine product type: cigarettes Substance use status: in withdrawal Qualified Code(s): F17.213 - Nicotine dependence, cigarettes, with withdrawal (2) Sedative, hypnotic or anxiolytic dependence, uncomplicated Status: Acute (3) GERD (gastroesophageal reflux disease) Status: Chronic Qualifiers: Esophagitis presence: without esophagitis Qualified Code(s): K21.9 - Gastro-esophageal reflux disease without esophagitis (4) Methadone maintenance therapy patient Status: Chronic (5) Substance induced mood disorder Status: Suspected - AMA Did Patient Leave Against Medical Advice: No CIWA Score - CIWA Score Nausea/Vomitin-No Nausea/No Vomiting Muscle Tremors: 1-None Visible, but [place] Anxiety: 1-Mildly Anxious Agitation: 0-Normal Activity Paroxysmal Sweats: No Perspiration Orientation: 0-Oriented Tacttile Disturbances: 0-None Auditory Disturbances: 0-None Visual Disturbances: 1-Very Mild Sensitivity Headache: 0-None Present CIWA-Ar Total Score: 3
== END 2019-06-03 08:45 | disposition home or self-care (01) | DRG 773 ==
LOC: YASAS 13:17 → Y3N 16:08
PROVIDERS: ADMIT Allergy & Immunology; ATTEND Allergy & Immunology
PROC: HZ2ZZZZ Detoxification Services for Substance Abuse Treatment (ICD-10-PCS; principal; 2019-05-31)
DX: F11.23 Opioid dependence with withdrawal (principal); F13.230 Sedative, hypnotic or anxiolytic dependence with withdrawal, uncomplicated; F14.20 Cocaine dependence, uncomplicated; F17.210 Nicotine dependence, cigarettes, uncomplicated; F19.24 Other psychoactive substance dependence with psychoactive substance-induced mood disorder; F41.8 Other specified anxiety disorders; F32.9 Major depressive disorder, single episode, unspecified; K21.9 Gastro-esophageal reflux disease without esophagitis; L20.9 Atopic dermatitis, unspecified; M54.5 Low back pain; G89.29 Other chronic pain
CPT/HCPCS: 36415; 80053; 81003; 85027; 86593; Q0162

== ENCOUNTER 2019-10-30 11:37 | Inpatient (IN) | payer OTHER ==
--- NOTE | 2019-10-30 12:11 | BHS.RME ---
Substance Use & Tx History - Substance Use History Heroin Substance amount: 2 bundles Frequency of use: Daily Substance route: Inhalation (ex: sniffing or snorting) Date of Last Use: 10/30/19 Xanax Substance amount: 2 mg x 7 tabs Frequency of use: Daily Substance route: Oral Date of Last Use: 10/30/19 Synthetic Cannabinoid Substance amount: one joint Frequency of use: Less than 3 times per week Substance route: Smoking Date of Last Use: 10/30/19 - Last Treatment Date of last treatment: July 2019 Treatment type: Substance Use Disorder ([facility]) Where was last treatment: Detox Physical/Psych/Mental Status - Behavior General Behavior: Increased activity (restlessness, agitation) Eye Contact: Normal - Cooperativeness Cooperativeness: Cooperative - Thinking Thought Processes: Tight Thought content: Future oriented - Physical Health Problems Is patient presently having any pain?: No Does patient presently have any injuries (include location): No Does patient currently have a fever: No COWS - Scale Resting Pulse: 1= SD 81-100 Sweatin=Flushed/Facial Moisture Restless Observation: 1= Difficult to Sit Still Pupil Size: 0= Normal to Room Light Bone or Joint Aches: 0= None Runny Nose/ Eye Tearin= None GI Upset > 30mins: 2= Nausea/Diarrhea Tremor Observation: 1= Tremor [place], Not Seen Yawning Observation: 0= None Anxiety or Irritability: 4=Extreme Anxiety Goose Flesh Skin: 0=Smooth Skin COWS Score: 11
[2019-10-30 12:47] VITALS: BMI 36.9
--- NOTE | 2019-10-30 13:19 | HP ---
COWS - Scale Resting Pulse: 1= [place] 81-100 Sweatin=Flushed/Facial Moisture Restless Observation: 1= Difficult to Sit Still Pupil Size: 0= Normal to Room Light Bone or Joint Aches: 0= None Runny Nose/ Eye Tearin= None GI Upset > 30mins: 2= Nausea/Diarrhea Tremor Observation: 1= Tremor [place], Not Seen Yawning Observation: 0= None Anxiety or Irritability: 4=Extreme Anxiety Goose Flesh Skin: 0=Smooth Skin COWS Score: 11 CIWA Score Nausea/Vomitin Muscle Tremors: 2 Anxiety: 4-Mod. Anxious/Guarded Agitation: 2 Paroxysmal Sweats: 2 Orientation: 0-Oriented Tacttile Disturbances: 0-None Auditory Disturbances: 0-None Visual Disturbances: 0-None Headache: 0-None Present CIWA-Ar Total Score: 12 - Admission Criteria OASAS Guidelines: Admission for Medically Managed Detox: Requires at least one of the followin. CIWA greater than 12 2. Seizures within the past 24 hours 3. Delirium tremens within the past 24 hours 4. Hallucinations within the past 24 hours 5. Acute intervention needed for co occurring medical disorder 6. Acute intervention needed for co occurring psychiatric disorder 7. Severe withdrawal that cannot be handled at a lower level of care (continued vomiting, continued diarrhea, abnormal vital signs) requiring intravenous medication and/or fluids 8. Admitting History and Physical - Admission Chief Complaint: Mr. Birmingham is a 28 yo who presents to [facility] stating "I need to stop this habit of mine". He requests admission for detox and rehab. History of Present Illness: Mr. Birmingham is a 28 yo who presents to [facility] stating "I need to stop this habit of mine". He requests admission for detox and rehab. He was last here August 13 and left on the and completed a Valium detox for benzodiazepine use disorder. Since that time he has stopped his prior Metha done. 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 Psych: c/o anxiety, not evaluated in the past SOC: with girlfriend in the [place] Legal: none Substance Use History Heroin Substance amount: 2 bundles Frequency of use: Daily Substance route: Inhalation (ex: sniffing or snorting) Date of Last Use: 10/30/19 Xanax Substance amount: 2 mg x 7 tabs Frequency of use: Daily Substance route: Oral Date of Last Use: 10/30/19 Synthetic Cannabinoid Substance amount: one joint Frequency of use: Less than 3 times per week Substance route: Smoking Date of Last Use: 10/30/19 - Last Treatment Date of last treatment: July 2019 Treatment type: Substance Use Disorder (CINDY) Where was last treatment: Detox Meets admission criteria due to high risk of relapse History Source: Patient Limitations to Obtaining History: No Limitations - Past Medical History Psych: Yes: Anxiety, Depression Musculoskeletal: Yes: Chronic low back pain (back sugery for benign tumor in 2014 at [facility]) - Smoking History Smoking history: Current every day smoker Have you smoked in the past 12 months: Yes Aproximately how many cigarettes per day: 15 - Alcohol/Substance Use Hx Alcohol Use: No Admission ROS BHS - HPI Allergies/Adverse Reactions: Allergies Allergy/AdvReac Type Severity Reaction Status Date / Time No Known Allergies Allergy Verified 10/30/19 12:36 Exam Limitations: No Limitations - Ebola screening Have you traveled outside of the country in the last 21 days: No Have you been sick,other than usual withdrawal symptoms: No Do you have a fever: No - Review of Systems Constitutional: Changes in sleep (poor sleep last night) EENT: reports: No Symptoms Reported Respiratory: reports: No Symptoms reported Cardiac: reports: No Symptoms Reported GI: reports: No Symptoms Reported : reports: No Symptoms Reported Musculoskeletal: reports: Back Pain Integumentary: reports: Other (eczema) Neuro: reports: No Symptoms reported Endocrine: reports: No Symptoms Reported Hematology: reports: No Symptoms Reported Psychiatric: reports: Anxious Patient History - Patient Medical History Hx Anemia: No Hx Asthma: No Hx Chronic Obstructive Pulmonary Disease (COPD): No Hx Cancer: No Hx Cardiac Disorders: No Hx Congestive Heart Failure: No Hx Hypertension: No Hx Hypercholesterolemia: No Hx Pacemaker: No HX Cerebrovascular Accident: No Hx Seizures: No Hx Dementia: No Hx Diabetes: No Hx Gastrointestinal Disorders: No Hx Liver Disease: No Hx Genitourinary Disorders: No Hx Sexually Transmitted Disorders: No Hx Renal Disease (ESRD): No Hx Thyroid Disease: No Hx Human Immunodeficiency Virus (HIV): No (last 04/2019 neative) Hx Hepatitis C: No Hx Depression: No Hx Suicide Attempt: No Hx Bipolar Disorder: No Hx Schizophrenia: No - Patient Surgical History Past Surgical History: Yes Hx Neurologic Surgery: No Hx Cataract Extraction: No Hx Cardiac Surgery: No Hx Lung Surgery: No Hx Breast Surgery: No Hx Breast Biopsy: No Hx Abdominal Surgery: No Hx Appendectomy: No Hx Cholecystectomy: No Hx Genitourinary Surgery: No Hx Section: No Hx Orthopedic Surgery: Yes (TUMOR REMOVED FROM SPINE-2014) Anesthesia Reaction: No - PPD History Previous Implant?: Yes Documented Results: Negative w/proof Implanted On Prior [facility] Admission?: No Date: 04/13/19 Results: 0mm - Reproductive History Patient : (n/a) - Smoking Cessation Smoking history: Current every day smoker Have you smoked in the past 12 months: Yes Aproximately how many cigarettes per day: 15 Cigars Per Day: 0 Hx Chewing Tobacco Use: No Initiated information on smoking cessation: Yes 'Breaking Loose' booklet given: 10/30/19 - Substances abused Alprazolam (Xanax) Substance route: Inhalation Frequency: Daily Amount used: 3-4 pills Age of first use: 26 Date of last use: 10/30/19 Heroin Substance route: Inhalation Frequency: Daily Amount used: 8 bags Age of first use: 26 Date of last use: 10/30/19 Admission Physical Exam BHS - Vital Signs Vital Signs: Vital Signs - 24 hr 10/30/19 12:42 Temperature 98.0 F Pulse Rate 90 Respiratory 19 Rate Blood Pressure 125/75 - Physical General Appearance: Yes: No Apparent Distress, Nourished, Appropriately Dressed, Anxious HEENTM: Yes: EOMI, Hearing grossly Normal, Normocephalic, Normal Voice Respiratory: Yes: Lungs Clear, Normal Breath Sounds, No Respiratory Distress, No Accessory Muscle Use Neck: Yes: Within Normal Limits, Supple Breast: Yes: Breast Exam Deferred Cardiology: Yes: Regular Rhythm, Regular Rate, S1, S2 Abdominal: Yes: Normal Bowel Sounds, Non Tender, Flat, Soft Genitourinary: Yes: Other (deferred) Back: Yes: Normal Inspection Musculoskeletal: Yes: Gait Steady Extremities: Yes: Normal Inspection, Non-Tender Neurological: Yes: Within Normal Limits Integumentary: Yes: Normal Color, Dry, Warm, Other (dry, flaky skin on both legs) - Diagnostic (1) Synthetic cannabinoid abuse Current Visit: Yes Status: Acute (2) Moderate benzodiazepine use disorder Current Visit: Yes Status: Acute (3) Opioid dependence with withdrawal Current Visit: Yes Status: Acute Cleared for Admission S - Detox or Rehab [facility] Level of Care: Medically Managed Detox Regimen/Protocol: Methadone/Valium Breathalyzer - Breathalyzer Breathalyzer: 0 Urine Drug Screen - Test Device Lot number: [id number] Expiration date: 10/20/21 - Control Is test valid?: Yes - Results Drug screen NEGATIVE: No Urine drug screen results: THC-Marijuana, FEN-Fentanyl, MOP-Opiates, BZO- Benzodiazepines Inpatient Rehab Admission - Rehab Decision to Admit Inpatient rehab admission?: No
[2019-10-30] MEDS ORDERED: MENTHOL/PHENOL 1 EACH UD MM PRN (13:26)
[2019-10-30] MEDS ORDERED: MAG HYDROX/AL HYDROX/SIMETH 30 ML UNIT-DOSE CUP PO PRN (13:26)
[2019-10-30] MEDS ORDERED: MAGNESIUM CITRATE 300 ML BOTTLE PO PRN (13:26)
[2019-10-30] MEDS ORDERED: ACETAMINOPHEN 325 MG TABLET (FP) PO PRN (13:26)
[2019-10-30] MEDS ORDERED: BISMUTH SUBSALICYLATE 524 MG/30 ML UD PO PRN (13:26)
[2019-10-30] MEDS ORDERED: IBUPROFEN 400 MG TABLET (FP) PO PRN (13:26)
[2019-10-30] MEDS ORDERED: MAGNESIUM HYDROX 2400MG/30ML ORAL SUSPENSION 30 ML CUP PO PRN (13:26)
[2019-10-30] MEDS ORDERED: cloNIDine HCL 0.1 MG TABLET PO PRN (13:26)
[2019-10-30] MEDS ORDERED: NICOTINE POLACRILEX 2 MG GUM BUC PRN (13:26)
[2019-10-30] MEDS: hydrOXYzine PAMOATE 25 MG CAPSULE (FP) PO SCH ×3 (13:59→22:35)
[2019-10-30] MEDS ORDERED: METHADONE HCL 10 MG TABLET (FOR DETOX USE ONLY) PO ONE (14:00)
[2019-10-30] MEDS: diazePAM 5 MG TABLET PO SCH ×2 (14:00→22:35)
[2019-10-30] MEDS: ONDANSETRON *ODT* 4 MG TABLET SL PRN (14:01)
[2019-10-30] MEDS: NICOTINE 21 MG/24 HOURS TOPICAL PATCH TD SCH (14:08)
--- NOTE | 2019-10-30 14:48 | EKG ---
Test Reason : Blood Pressure : / mmHG Vent. Rate : 090 BPM Atrial Rate : 090 BPM P-R Int : 144 ms QRS Dur : 094 ms QT Int : 378 ms P-R-T Axes : 059 063 016 degrees QTc Int : 462 ms NORMAL SINUS RHYTHM POSSIBLE LEFT ATRIAL ENLARGEMENT BORDERLINE ECG WHEN COMPARED WITH ECG OF 14-AUG-2019 11:31, NO SIGNIFICANT CHANGE WAS FOUND Confirmed by LEYDI GLORIA MD ([id number]) on 10/30/2019 2:47:38 PM Referred By: Confirmed By:LEYDI GLORIA MD
[2019-10-30 16:50] LABS: HEMATOCRIT 40.8 % (35.4-49); HEMOGLOBIN 13.5 GM/dL (11.7-16.9); MCH 29.6 pg (25.7-33.7); MEAN CELL VOLUME 89.6 fl (80-96); MEAN PLT VOLUME 8.9 fl (7.5-11.1); PLATELET COUNT 240 K/MM3 (134-434); RBC 4.55 M/mm3 (4.00-5.60); RDW 13.4 % (11.9-15.9); WHITE BLOOD COUNT 10.3 K/mm3 (4.0-10.0)
[2019-10-30 16:58] LABS: ALBUMIN 4.3 g/dl (3.4-5.0); BILIRUBIN,TOTAL 0.8 mg/dL (0.2-1); CALCIUM 9.1 mg/dL (8.5-10.1); POTASSIUM 3.7 mmol/L (3.5-5.1); TOT PROT 7.9 g/dl (6.4-8.2)
[2019-10-30] MEDS: THIAMINE HCL 100 MG TABLET (FP) PO SCH (22:35)
[2019-10-30] MEDS: MELATONIN 5 MG TABLETS PO SCH (22:35)
[2019-10-31] MEDS: diazePAM 5 MG TABLET PO SCH ×3 (05:55→23:04)
[2019-10-31] MEDS: hydrOXYzine PAMOATE 25 MG CAPSULE (FP) PO SCH ×5 (05:55→23:04)
[2019-10-31] MEDS: METHOCARBAMOL 500 MG TABLET PO PRN ×2 (05:55→14:59)
[2019-10-31] MEDS ORDERED: METHADONE (DETOX) 20 MG, METHADONE (DETOX) 5 MG PO ONE (10:00)
[2019-10-31] MEDS ORDERED: NICOTINE 7 MG/24 HOURS TOPICAL PATCH TD SCH (10:00)
[2019-10-31] MEDS ORDERED: METHADONE HCL 10 MG TABLET (FOR DETOX USE ONLY) ONE (10:09)
[2019-10-31] MEDS ORDERED: METHADONE HCL 5 MG TABLET (FOR DETOX USE ONLY) ONE (10:09)
[2019-10-31] MEDS: PRENATAL VITAMINS W/ FOLIC ACID TABLET (FP) PO SCH (10:23)
[2019-10-31] MEDS: NICOTINE 21 MG/24 HOURS TOPICAL PATCH TD SCH (10:24)
--- NOTE | 2019-10-31 10:28 | PN ---
S CIWA - CIWA Score Nausea/Vomitin Muscle Tremors: 2 Anxiety: 2 Agitation: 2 Paroxysmal Sweats: No Perspiration Orientation: 0-Oriented Tacttile Disturbances: 1-Very Mild Itch/Numbness Auditory Disturbances: 0-None Visual Disturbances: 0-None Headache: 2-Mild CIWA-Ar Total Score: 11 BHS COWS - Scale Resting Pulse: 0= [place] 80 or Below Sweatin= No chills or Flushing Restless Observation: 0= Sits Still Pupil Size: 1= Pupils >than Normal Bone or Joint Aches: 2= Severe Diffuse Aches Runny Nose/ Eye Tearin= Runny Nose/Eyes GI Upset > 30mins: 2= Nausea/Diarrhea Tremor Observation of Outstretched Hands: 2= Slight Tremor Visible Yawning Observation: 1= 1-2x During Session Anxiety or Irritability: 2=Irritable/Anxious Goose Flesh Skin: 0=Smooth Skin COWS Score: 12 S Progress Note (SOAP) Subjective: alert,irritable,anxious,interrupted sleep,pain in the body and back,aching pain,nausea Objective: 10/31/19 16:08 Vital Signs Temperature 97.1 F L 10/31/19 12:34 Pulse Rate 74 10/31/19 12:34 Respiratory Rate 18 10/31/19 12:34 Blood Pressure 124/65 10/31/19 12:34 O2 Sat by Pulse Oximetry (%) 98 10/31/19 12:34 Laboratory Last Values WBC 10.3 K/mm3 (4.0-10.0) H 10/30/19 13:00 RBC 4.55 M/mm3 (4.00-5.60) 10/30/19 13:00 Hgb 13.5 GM/dL (11.7-16.9) 10/30/19 13:00 Hct 40.8 % (35.4-49) 10/30/19 13:00 MCV 89.6 fl (80-96) 10/30/19 13:00 MCH 29.6 pg (25.7-33.7) 10/30/19 13:00 MCHC 33.0 g/dl (32.0-35.9) 10/30/19 13:00 RDW 13.4 % (11.9-15.9) 10/30/19 13:00 Plt Count 240 K/MM3 (134-434) 10/30/19 13:00 MPV 8.9 fl (7.5-11.1) 10/30/19 13:00 Sodium 139 mmol/L (136-145) 10/30/19 13:00 Potassium 3.7 mmol/L (3.5-5.1) 10/30/19 13:00 Chloride 105 mmol/L (98-107) 10/30/19 13:00 Carbon Dioxide 25 mmol/L (21-32) 10/30/19 13:00 Anion Gap 9 MMOL/L (8-16) 10/30/19 13:00 BUN 15.0 mg/dL (7-18) 10/30/19 13:00 Creatinine 1.0 mg/dL (0.55-1.3) 10/30/19 13:00 Est GFR (CKD-EPI)AfAm 116.54 10/30/19 13:00 Est GFR (CKD-EPI)NonAf 100.55 10/30/19 13:00 Random Glucose 145 mg/dL (74-106) H 10/30/19 13:00 Calcium 9.1 mg/dL (8.5-10.1) 10/30/19 13:00 Total Bilirubin 0.8 mg/dL (0.2-1) 10/30/19 13:00 AST 25 U/L (15-37) 10/30/19 13:00 ALT 44 U/L (13-61) 10/30/19 13:00 Alkaline Phosphatase 160 U/L (45-117) H 10/30/19 13:00 Total Protein 7.9 g/dl (6.4-8.2) 10/30/19 13:00 Albumin 4.3 g/dl (3.4-5.0) 10/30/19 13:00 Syphilis Serology Non-reactive (NONREACTIVE) 10/30/19 13:00 HIV Ag/Ab Combo Qual Negative (NEGATIVE) 10/30/19 13:00 Assessment: 10/31/19 16:09 withdrawal symptom Plan: continue detox methadone and valium regimen,encourage oral fluid,repeat cbc ,fasting glucose in am
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
[2019-10-31] MEDS: diazePAM 5 MG TABLET PO PRN (19:00)
[2019-10-31] MEDS: THIAMINE HCL 100 MG TABLET (FP) PO SCH (23:04)
[2019-10-31] MEDS: MELATONIN 5 MG TABLETS PO SCH (23:04)
[2019-11-01] MEDS: METHOCARBAMOL 500 MG TABLET PO PRN ×2 (04:25→14:43)
[2019-11-01] MEDS: ACETAMINOPHEN 325 MG TABLET (FP) PO PRN (04:25)
[2019-11-01] MEDS: diazePAM 5 MG TABLET PO SCH ×2 (05:28→18:06)
[2019-11-01] MEDS: hydrOXYzine PAMOATE 25 MG CAPSULE (FP) PO SCH ×5 (05:28→22:51)
[2019-11-01] MEDS: ONDANSETRON *ODT* 4 MG TABLET SL PRN (09:14)
[2019-11-01] MEDS ORDERED: METHADONE HCL 10 MG TABLET (FOR DETOX USE ONLY) PO ONE ×2 (10:00→14:30)
--- NOTE | 2019-11-01 11:18 | PN ---
S CIWA - CIWA Score Nausea/Vomitin-Mild Nausea/No Vomiting Muscle Tremors: None Anxiety: 3 Agitation: 0-Normal Activity Paroxysmal Sweats: 3 Orientation: 0-Oriented Tacttile Disturbances: 0-None Auditory Disturbances: 0-None Visual Disturbances: 0-None Headache: 2-Mild CIWA-Ar Total Score: 9 S COWS - Scale Resting Pulse: 1= [place] 81-100 Sweatin= Beads of Sweat on Face Restless Observation: 1= Difficult to Sit Still Pupil Size: 0= Normal to Room Light Bone or Joint Aches: 2= Severe Diffuse Aches Runny Nose/ Eye Tearin= None GI Upset > 30mins: 0= None Tremor Observation of Outstretched Hands: 0= None Yawning Observation: 1= 1-2x During Session Anxiety or Irritability: 2=Irritable/Anxious Goose Flesh Skin: 0=Smooth Skin COWS Score: 10 S Progress Note (SOAP) Subjective: c/o anxiety, nausea, irritability, headache, muscle aches, and sweats. Objective: 11/01/19 11:17 Vital Signs 11/01/19 11/01/19 05:20 08:45 Temperature 97.3 F L 98.6 F Pulse Rate 86 83 Respiratory 18 18 Rate Blood Pressure 131/83 138/84 O2 Sat by Pulse 97 Oximetry (%) Laboratory Last Values WBC 10.3 K/mm3 (4.0-10.0) H 10/30/19 13:00 RBC 4.55 M/mm3 (4.00-5.60) 10/30/19 13:00 Hgb 13.5 GM/dL (11.7-16.9) 10/30/19 13:00 Hct 40.8 % (35.4-49) 10/30/19 13:00 MCV 89.6 fl (80-96) 10/30/19 13:00 MCH 29.6 pg (25.7-33.7) 10/30/19 13:00 MCHC 33.0 g/dl (32.0-35.9) 10/30/19 13:00 RDW 13.4 % (11.9-15.9) 10/30/19 13:00 Plt Count 240 K/MM3 (134-434) 10/30/19 13:00 MPV 8.9 fl (7.5-11.1) 10/30/19 13:00 Sodium 139 mmol/L (136-145) 10/30/19 13:00 Potassium 3.7 mmol/L (3.5-5.1) 10/30/19 13:00 Chloride 105 mmol/L (98-107) 10/30/19 13:00 Carbon Dioxide 25 mmol/L (21-32) 10/30/19 13:00 Anion Gap 9 MMOL/L (8-16) 10/30/19 13:00 BUN 15.0 mg/dL (7-18) 10/30/19 13:00 Creatinine 1.0 mg/dL (0.55-1.3) 10/30/19 13:00 Est GFR (CKD-EPI)AfAm 116.54 10/30/19 13:00 Est GFR (CKD-EPI)NonAf 100.55 10/30/19 13:00 Random Glucose 145 mg/dL (74-106) H 10/30/19 13:00 Calcium 9.1 mg/dL (8.5-10.1) 10/30/19 13:00 Total Bilirubin 0.8 mg/dL (0.2-1) 10/30/19 13:00 AST 25 U/L (15-37) 10/30/19 13:00 ALT 44 U/L (13-61) 10/30/19 13:00 Alkaline Phosphatase 160 U/L (45-117) H 10/30/19 13:00 Total Protein 7.9 g/dl (6.4-8.2) 10/30/19 13:00 Albumin 4.3 g/dl (3.4-5.0) 10/30/19 13:00 Syphilis Serology Non-reactive (NONREACTIVE) 10/30/19 13:00 COVID-19 ([facility]) Not detected (Not Detected) 10/30/19 13:00 HIV Ag/Ab Combo Qual Negative (NEGATIVE) 10/30/19 13:00 Labs noted. Assessment: 11/01/19 11:17 AOX3 and in no acute respiratory distress. Full ROM, ambulating in the unit. Withdrawal symptoms. Plan: continue detox.
[2019-11-01] MEDS ORDERED: TRIMETHOBENZAMIDE HCL 200MG/2ML INJ IM ONE (13:01)
[2019-11-01] MEDS: NICOTINE 21 MG/24 HOURS TOPICAL PATCH TD SCH (14:28)
[2019-11-01] MEDS: PRENATAL VITAMINS W/ FOLIC ACID TABLET (FP) PO SCH (14:28)
[2019-11-01] MEDS: MELATONIN 5 MG TABLETS PO SCH (22:51)
[2019-11-01] MEDS: diazePAM 5 MG TABLET PO PRN (22:51)
[2019-11-01] MEDS: THIAMINE HCL 100 MG TABLET (FP) PO SCH (22:51)
[2019-11-02] MEDS: METHOCARBAMOL 500 MG TABLET PO PRN ×2 (05:55→18:18)
[2019-11-02] MEDS: ONDANSETRON *ODT* 4 MG TABLET SL PRN ×2 (05:55→16:46)
[2019-11-02] MEDS: hydrOXYzine PAMOATE 25 MG CAPSULE (FP) PO SCH ×5 (05:55→22:05)
[2019-11-02] MEDS ORDERED: diazePAM 5 MG TABLET PO ONE (06:00)
[2019-11-02] MEDS ORDERED: METHADONE HCL 10 MG TABLET (FOR DETOX USE ONLY) ONE (09:53)
[2019-11-02] MEDS ORDERED: METHADONE HCL 5 MG TABLET (FOR DETOX USE ONLY) ONE (09:53)
[2019-11-02] MEDS ORDERED: METHADONE (DETOX) 10 MG, METHADONE (DETOX) 5 MG PO ONE (10:00)
[2019-11-02] MEDS: diazePAM 5 MG TABLET PO PRN (10:56)
[2019-11-02] MEDS: NICOTINE 21 MG/24 HOURS TOPICAL PATCH TD SCH (10:58)
[2019-11-02] MEDS: PRENATAL VITAMINS W/ FOLIC ACID TABLET (FP) PO SCH (10:58)
[2019-11-02] MEDS ORDERED: TRIMETHOBENZAMIDE HCL 200MG/2ML INJ IM PRN (16:04)
[2019-11-02] MEDS ORDERED: DICYCLOMINE HCL 10 MG CAPSULE PO ONE (16:06)
--- NOTE | 2019-11-02 16:08 | PN ---
[facility] CIWA - CIWA Score Nausea/Vomitin-No Nausea/No Vomiting Muscle Tremors: 2 Anxiety: 3 Agitation: 1-Slight > Activity Paroxysmal Sweats: No Perspiration Orientation: 0-Oriented Tacttile Disturbances: 0-None Auditory Disturbances: 0-None Visual Disturbances: 2-Mild Sensitivity Headache: 0-None Present CIWA-Ar Total Score: 8 S COWS - Scale Resting Pulse: 1= [place] 81-100 Sweatin= Chills/Flushing Restless Observation: 0= Sits Still Pupil Size: 1= Pupils >than Normal Bone or Joint Aches: 0= None Runny Nose/ Eye Tearin= None GI Upset > 30mins: 1= Stomach Cramp Tremor Observation of Outstretched Hands: 2= Slight Tremor Visible Yawning Observation: 0= None Anxiety or Irritability: 2=Irritable/Anxious Goose Flesh Skin: 0=Smooth Skin COWS Score: 8 [facility] Progress Note (SOAP) Subjective: 28 YEARS OLD MALE ADMITTED ON 10/30/19 FOR BENZO AND OPIATE WITHDRAWAL SX MANAGEMENT TREATING WITH VALIUM AND METHADONE DETOX REGIMENT REPORT VOMITING X 1 AFTER MEAL BEGIN TIGAN IM PRN DISCONTINUE MOTRIN BENTYL 20 MG PO X 1 Objective: 11/02/19 16:08 Vital Signs - 24 hr 11/01/19 11/01/19 11/02/19 16:40 20:58 07:15 Temperature 98.6 F 97.5 F L 97.3 F L Pulse Rate 80 72 76 Respiratory 18 18 18 Rate Blood Pressure 129/73 145/90 127/70 O2 Sat by Pulse 99 98 Oximetry (%) 11/02/19 11/02/19 08:37 12:34 Temperature 97.1 F L 98.6 F Pulse Rate 70 88 Respiratory 20 18 Rate Blood Pressure 128/84 127/70 O2 Sat by Pulse 98 Oximetry (%) Laboratory Tests 10/30/19 10/30/19 10/30/19 13:00 13:00 13:00 WBC 10.3 H RBC 4.55 Hgb 13.5 Hct 40.8 MCV 89.6 MCH 29.6 MCHC 33.0 RDW 13.4 Plt Count 240 MPV 8.9 Sodium 139 Potassium 3.7 Chloride 105 Carbon Dioxide 25 Anion Gap 9 BUN 15.0 Creatinine 1.0 Est GFR (CKD-EPI)AfAm 116.54 Est GFR (CKD-EPI)NonAf 100.55 Random Glucose 145 H Calcium 9.1 Total Bilirubin 0.8 AST 25 ALT 44 Alkaline Phosphatase 160 H Total Protein 7.9 Albumin 4.3 Syphilis Serology COVID-19 ([facility]) HIV Ag/Ab Combo Qual Negative 10/30/19 10/30/19 13:00 13:00 WBC RBC Hgb Hct MCV MCH MCHC RDW Plt Count MPV Sodium Potassium Chloride Carbon Dioxide Anion Gap BUN Creatinine Est GFR (CKD-EPI)AfAm Est GFR (CKD-EPI)NonAf Random Glucose Calcium Total Bilirubin AST ALT Alkaline Phosphatase Total Protein Albumin Syphilis Serology Non-reactive COVID-19 ([facility]) Not detected HIV Ag/Ab Combo Qual GLUCOSE ELEVATION 11/02/19 16:10 FASTING GLUCOSE PENDING Assessment: 11/02/19 16:10 BENZO AND OPIATE WITHDRAWAL Plan: VALIUM AND METHADONE REGIMENTS
[2019-11-02] MEDS: THIAMINE HCL 100 MG TABLET (FP) PO SCH (22:05)
[2019-11-02] MEDS: MELATONIN 5 MG TABLETS PO SCH (22:05)
[2019-11-03] MEDS: METHOCARBAMOL 500 MG TABLET PO PRN (03:05)
[2019-11-03] MEDS: ACETAMINOPHEN 325 MG TABLET (FP) PO PRN (03:06)
[2019-11-03] MEDS: hydrOXYzine PAMOATE 25 MG CAPSULE (FP) PO SCH ×5 (06:03→22:25)
[2019-11-03] MEDS: ONDANSETRON *ODT* 4 MG TABLET SL PRN (07:17)
[2019-11-03] MEDS ORDERED: METHADONE HCL 10 MG TABLET (FOR DETOX USE ONLY) PO ONE (10:00)
[2019-11-03] MEDS: PRENATAL VITAMINS W/ FOLIC ACID TABLET (FP) PO SCH (10:52)
[2019-11-03] MEDS: NICOTINE 21 MG/24 HOURS TOPICAL PATCH TD SCH (10:53)
--- NOTE | 2019-11-03 11:09 | PN ---
[facility] CIWA - CIWA Score Nausea/Vomitin-Mild Nausea/No Vomiting Muscle Tremors: 1-None Visible, but [place] Anxiety: 1-Mildly Anxious Agitation: 1-Slight > Activity Paroxysmal Sweats: 1-Minimal Palms Moist Orientation: 0-Oriented Tacttile Disturbances: 0-None Auditory Disturbances: 0-None Visual Disturbances: 1-Very Mild Sensitivity Headache: 1-Very Mild CIWA-Ar Total Score: 7 S COWS - Scale Resting Pulse: 0= [place] 80 or Below Sweatin= No chills or Flushing Restless Observation: 0= Sits Still Pupil Size: 0= Normal to Room Light Bone or Joint Aches: 1= Mild Discomfort Runny Nose/ Eye Tearin= None GI Upset > 30mins: 2= Nausea/Diarrhea Tremor Observation of Outstretched Hands: 1= Tremor [place], Not Seen Yawning Observation: 2= >3x During Session Anxiety or Irritability: 1=Feels Anxious/Irritable Goose Flesh Skin: 0=Smooth Skin COWS Score: 7 S Progress Note (SOAP) Subjective: 28 years old male was admitted on 10/30/19 for benzo and opiate withdrawal sx management treating with valium and methadone detox regiment feeling better today discussing aftercare with staff mr lomax prefers revelation for benzo and opiate recovery Objective: 11/03/19 11:12 Vital Signs - 24 hr 11/02/19 11/02/19 11/02/19 12:34 16:18 21:02 Temperature 98.6 F 97.1 F L 98.0 F Pulse Rate 88 71 74 Respiratory 18 18 18 Rate Blood Pressure 127/70 128/80 118/78 O2 Sat by Pulse 98 95 Oximetry (%) 11/03/19 11/03/19 06:48 09:35 Temperature 98.0 F 97.3 F L Pulse Rate 80 69 Respiratory 18 18 Rate Blood Pressure 130/72 160/82 O2 Sat by Pulse 97 Oximetry (%) Laboratory Tests 10/30/19 10/30/19 10/30/19 13:00 13:00 13:00 WBC 10.3 H RBC 4.55 Hgb 13.5 Hct 40.8 MCV 89.6 MCH 29.6 MCHC 33.0 RDW 13.4 Plt Count 240 MPV 8.9 Sodium 139 Potassium 3.7 Chloride 105 Carbon Dioxide 25 Anion Gap 9 BUN 15.0 Creatinine 1.0 Est GFR (CKD-EPI)AfAm 116.54 Est GFR (CKD-EPI)NonAf 100.55 Random Glucose 145 H Calcium 9.1 Total Bilirubin 0.8 AST 25 ALT 44 Alkaline Phosphatase 160 H Total Protein 7.9 Albumin 4.3 Syphilis Serology COVID-19 ([facility]) HIV Ag/Ab Combo Qual Negative 10/30/19 10/30/19 13:00 13:00 WBC RBC Hgb Hct MCV MCH MCHC RDW Plt Count MPV Sodium Potassium Chloride Carbon Dioxide Anion Gap BUN Creatinine Est GFR (CKD-EPI)AfAm Est GFR (CKD-EPI)NonAf Random Glucose Calcium Total Bilirubin AST ALT Alkaline Phosphatase Total Protein Albumin Syphilis Serology Non-reactive COVID-19 ([facility]) Not detected HIV Ag/Ab Combo Qual 11/03/19 11:14 fasting glucose pending Assessment: 11/03/19 11:14 benzo and opiate withdrawal Plan: valium and methadone regiments
[2019-11-03] MEDS: MELATONIN 5 MG TABLETS PO SCH (22:25)
[2019-11-03] MEDS: THIAMINE HCL 100 MG TABLET (FP) PO SCH (22:26)
[2019-11-04] MEDS: hydrOXYzine PAMOATE 25 MG CAPSULE (FP) PO SCH (05:51)
[2019-11-04] MEDS ORDERED: METHADONE HCL 5 MG TABLET (FOR DETOX USE ONLY) PO ONE (06:00)
[2019-11-04 06:44] VITALS: BP 116/85; PULSE 77; TEMP 98
--- NOTE | 2019-11-04 14:01 | DS ---
[facility] Detox Discharge Summary Admission Date: 10/30/19 Discharge Date: 11/04/19 - History Present History: Opioid Dependence, Sedative Dependence Additional Comments: 28 years old male was admitted on 10/30/19 for benzo and opiate withdrawal sx management treated wtih valium and methadone detox regiment seen by psychiatrist no medical intervention mr lomax has completed the valium and methadone regiments and is tolerated well General Appearance: Yes: No Apparent Distress, Nourished, Appropriately Dressed, Anxious HEENTM: Yes: EOMI, Hearing grossly Normal, Normocephalic, Normal Voice Respiratory: Yes: Lungs Clear, Normal Breath Sounds, No Respiratory Distress, No Accessory Muscle Use Neck: Yes: Within Normal Limits, Supple Breast: Yes: Breast Exam Deferred Cardiology: Yes: Regular Rhythm, Regular Rate, S1, S2 Abdominal: Yes: Normal Bowel Sounds, Non Tender, Flat, Soft Genitourinary: Yes: Other (deferred) Back: Yes: Normal Inspection Musculoskeletal: Yes: Gait Steady Extremities: Yes: Normal Inspection, Non-Tender Neurological: Yes: Within Normal Limits Integumentary: Yes: Normal Color, Dry, Warm, Other (dry, flaky skin on both legs) Pertinent Past History: time for discharge 34 minutes mr lomax agrees to follow up random glucose elevation with [place] - Physical Exam Results Vital Signs: Vital Signs Temperature 98.0 F 11/04/19 06:43 Pulse Rate 77 11/04/19 06:43 Respiratory Rate 18 11/04/19 06:43 Blood Pressure 116/85 11/04/19 06:43 O2 Sat by Pulse Oximetry (%) 99 11/04/19 09:48 Pertinent Admission Physical Exam Findings: benzo and opiate withdrawal Laboratory Tests 10/30/19 10/30/19 10/30/19 13:00 13:00 13:00 WBC 10.3 H RBC 4.55 Hgb 13.5 Hct 40.8 MCV 89.6 MCH 29.6 MCHC 33.0 RDW 13.4 Plt Count 240 MPV 8.9 Sodium 139 Potassium 3.7 Chloride 105 Carbon Dioxide 25 Anion Gap 9 BUN 15.0 Creatinine 1.0 Est GFR (CKD-EPI)AfAm 116.54 Est GFR (CKD-EPI)NonAf 100.55 Random Glucose 145 H Calcium 9.1 Total Bilirubin 0.8 AST 25 ALT 44 Alkaline Phosphatase 160 H Total Protein 7.9 Albumin 4.3 Syphilis Serology COVID-19 ([facility]) HIV Ag/Ab Combo Qual Negative 10/30/19 10/30/19 13:00 13:00 WBC RBC Hgb Hct MCV MCH MCHC RDW Plt Count MPV Sodium Potassium Chloride Carbon Dioxide Anion Gap BUN Creatinine Est GFR (CKD-EPI)AfAm Est GFR (CKD-EPI)NonAf Random Glucose Calcium Total Bilirubin AST ALT Alkaline Phosphatase Total Protein Albumin Syphilis Serology Non-reactive COVID-19 ([facility]) Not detected HIV Ag/Ab Combo Qual fasting glucose been cancelled - Treatment Hospital Course: Detox Protocol Followed, Detoxed Safely, Responded well, Discharged Condition Good, Rehab Referral Accepted Patient has Accepted a Rehab Referral to: [facility] - Medication Discharge Medications: Ambulatory Orders Naloxone HCl [Narcan] 4 mg NS ASDIR PRN #1 spray 11/03/19 - Diagnosis (1) Nicotine dependence Status: Acute Qualifiers: Nicotine product type: cigarettes Substance use status: in withdrawal Qualified Code(s): F17.213 - Nicotine dependence, cigarettes, with withdrawal (2) Substance induced mood disorder Status: Suspected (3) GERD (gastroesophageal reflux disease) Status: Chronic Qualifiers: Esophagitis presence: without esophagitis Qualified Code(s): K21.9 - Gastro-esophageal reflux disease without esophagitis (4) Sedative, hypnotic or anxiolytic dependence, uncomplicated Status: Acute (5) Opioid use disorder Status: Acute (6) Elevated random blood glucose level Status: Chronic - AMA Did Patient Leave Against Medical Advice: No CIWA Score - CIWA Score Nausea/Vomitin-No Nausea/No Vomiting Muscle Tremors: 1-None Visible, but [place] Anxiety: 1-Mildly Anxious Agitation: 1-Slight > Activity Paroxysmal Sweats: No Perspiration Orientation: 0-Oriented Tacttile Disturbances: 0-None Auditory Disturbances: 0-None Visual Disturbances: 0-None Headache: 0-None Present CIWA-Ar Total Score: 3 COWS (PN) - Opiate Withdrawal Resting Pulse: 0= [place] 80 or Below Sweatin= No chills or Flushing Restless Observation: 0= Sits Still Pupil Size: 0= Normal to Room Light Bone or Joint Aches: 0= None Runny Nose/ Eye Tearin= Nasal Congestion GI Upset > 30mins: 0= None Tremor Observation of Outstretched Hands: 1= Tremor [place], Not Seen Yawning Observation: 0= None Anxiety or Irritability: 1=Feels Anxious/Irritable Goose Flesh Skin: 0=Smooth Skin COWS Score: 3
== END 2019-11-04 08:18 | disposition home or self-care (01) | DRG 773 ==
LOC: YASAS 11:37 → Y3N 12:45
PROVIDERS: ADMIT Allergy & Immunology; ATTEND Allergy & Immunology
PROC: HZ2ZZZZ Detoxification Services for Substance Abuse Treatment (ICD-10-PCS; principal; 2019-10-30)
DX: F11.23 Opioid dependence with withdrawal (principal); F13.230 Sedative, hypnotic or anxiolytic dependence with withdrawal, uncomplicated; F14.20 Cocaine dependence, uncomplicated; F19.10 Other psychoactive substance abuse, uncomplicated; F17.210 Nicotine dependence, cigarettes, uncomplicated; F19.24 Other psychoactive substance dependence with psychoactive substance-induced mood disorder; K21.9 Gastro-esophageal reflux disease without esophagitis; R73.09 Other abnormal glucose; R73.9 Hyperglycemia, unspecified; E66.9 Obesity, unspecified; Z68.36 Body mass index [BMI] 36.0-36.9, adult; Z56.0 Unemployment, unspecified; Z59.0 Homelessness
CPT/HCPCS: 36415; 80053; 85027; 86780; 87389; 93005; 93010; J0735; Q0162; U0003

== ENCOUNTER 2021-04-15 16:21 | Inpatient (IN) | payer OTHER ==
[2021-04-15 22:59] VITALS: BMI 32.5
[2021-04-15] MEDS ORDERED: BISMUTH SUBSALICYLATE 524 MG/30 ML PO PRN (23:22)
[2021-04-15] MEDS ORDERED: ONDANSETRON *ODT* 4 MG TABLET SL PRN (23:22)
[2021-04-15] MEDS ORDERED: MENTHOL/PHENOL 1 EACH UD MM PRN (23:22)
[2021-04-15] MEDS ORDERED: MAGNESIUM CITRATE 300 ML BOTTLE PO PRN (23:22)
[2021-04-15] MEDS ORDERED: MAGNESIUM HYDROX 2400MG/30ML ORAL SUSPENSION 30 ML CUP PO PRN (23:22)
[2021-04-15] MEDS ORDERED: IBUPROFEN 400 MG TABLET (FP) PO PRN (23:22)
[2021-04-15] MEDS ORDERED: MAG HYDROX/AL HYDROX/SIMETH 30 ML UNIT-DOSE CUP PO PRN (23:22)
[2021-04-15] MEDS ORDERED: ACETAMINOPHEN 325 MG TABLET (FP) PO PRN ×2 (23:22)
[2021-04-15] MEDS ORDERED: NICOTINE 10 MG CARTRIDGE (INHALER) IH PRN (23:22)
[2021-04-16] MEDS ORDERED: diazePAM 5 MG TABLET PO ONE (00:12)
[2021-04-16] MEDS ORDERED: cloNIDine HCL 0.1 MG TABLET PO PRN (00:12)
[2021-04-16] MEDS ORDERED: methaDONE HCL 10 MG TABLET (FOR DETOX USE ONLY) PO ONE (00:12)
[2021-04-16] MEDS: diazePAM 5 MG TABLET PO SCH ×4 (06:16→23:13)
[2021-04-16] MEDS: METHOCARBAMOL 500 MG TABLET PO PRN (11:23)
[2021-04-16] MEDS: PRENATAL VITAMINS W/ FOLIC ACID TABLET (FP) PO SCH (11:24)
[2021-04-16] MEDS: CLOTRIMAZOLE/BETAMET DIPROP TOPICAL CREAM 45 GM TUBE TP SCH ×2 (11:25→23:29)
[2021-04-16] MEDS: MELATONIN 5 MG TABLETS PO PRN (23:13)
[2021-04-16] MEDS: THIAMINE HCL 100 MG TABLET (FP) PO SCH (23:13)
[2021-04-16] MEDS: hydrOXYzine PAMOATE 25 MG CAPSULE (FP) PO PRN (23:14)
[2021-04-17] MEDS: diazePAM 5 MG TABLET PO SCH ×3 (05:53→22:42)
[2021-04-17] MEDS ORDERED: methaDONE HCL 10 MG TABLET (FOR DETOX USE ONLY) ONE (09:10)
[2021-04-17] MEDS: hydrOXYzine PAMOATE 25 MG CAPSULE (FP) PO PRN (09:12)
[2021-04-17] MEDS: diazePAM 5 MG TABLET PO PRN ×2 (09:13→18:05)
[2021-04-17] MEDS: METHOCARBAMOL 500 MG TABLET PO PRN ×2 (09:14→22:43)
[2021-04-17] MEDS: CLOTRIMAZOLE/BETAMET DIPROP TOPICAL CREAM 45 GM TUBE TP SCH ×2 (09:14→22:43)
[2021-04-17] MEDS: PRENATAL VITAMINS W/ FOLIC ACID TABLET (FP) PO SCH (09:17)
[2021-04-17] MEDS ORDERED: ONDANSETRON 4 MG TABLET PO PRN (15:00)
[2021-04-17] MEDS: THIAMINE HCL 100 MG TABLET (FP) PO SCH (22:42)
[2021-04-17] MEDS: MELATONIN 5 MG TABLETS PO PRN (22:43)
[2021-04-18] MEDS: diazePAM 5 MG TABLET PO SCH ×2 (06:50→18:09)
[2021-04-18] MEDS: ONDANSETRON *ODT* 4 MG TABLET SL PRN (09:35)
[2021-04-18] MEDS ORDERED: methaDONE HCL 10 MG TABLET (FOR DETOX USE ONLY) PO ONE (10:00)
[2021-04-18] MEDS: diazePAM 5 MG TABLET PO PRN ×3 (10:28→22:18)
[2021-04-18] MEDS: METHOCARBAMOL 500 MG TABLET PO PRN (10:28)
[2021-04-18] MEDS: PRENATAL VITAMINS W/ FOLIC ACID TABLET (FP) PO SCH (10:29)
[2021-04-18] MEDS: CLOTRIMAZOLE/BETAMET DIPROP TOPICAL CREAM 45 GM TUBE TP SCH ×2 (10:29→22:19)
[2021-04-18] MEDS: hydrOXYzine PAMOATE 25 MG CAPSULE (FP) PO PRN (14:55)
[2021-04-18] MEDS: THIAMINE HCL 100 MG TABLET (FP) PO SCH (22:17)
[2021-04-19] MEDS ORDERED: diazePAM 5 MG TABLET PO ONE (06:00)
[2021-04-19] MEDS ORDERED: methaDONE HCL 10 MG TABLET (FOR DETOX USE ONLY) ONE (08:46)
[2021-04-19] MEDS: PRENATAL VITAMINS W/ FOLIC ACID TABLET (FP) PO SCH (09:36)
[2021-04-19] MEDS: CLOTRIMAZOLE/BETAMET DIPROP TOPICAL CREAM 45 GM TUBE TP SCH ×2 (09:36→22:22)
[2021-04-19 12:13] LABS: BASO % 0.5 % (0-2.0); EOS % 0.3 % (0-4.5); HEMATOCRIT 43.1 % (35.4-49); HEMOGLOBIN 14.4 GM/dL (11.7-16.9); LYMPH % 12.9 % (8-40); MCH 29.3 pg (25.7-33.7); MCHC 33.3 g/dl (32.0-35.9); NEUT % 78.3 % (42.8-82.8); PLATELET COUNT 217 10^3/uL (134-434); RDW 15.1 % (11.9-15.9); WHITE BLOOD COUNT 11.5 K/mm3 (4.0-10.0)
[2021-04-19 12:17] LABS: CALCIUM 9.6 mg/dL (8.5-10.1)
[2021-04-19 12:18] LABS: ALBUMIN 4.5 g/dl (3.4-5.0)
[2021-04-19 12:21] LABS: CREATININE 0.9 mg/dL (0.55-1.3)
[2021-04-19 12:22] LABS: BILIRUBIN,TOTAL 0.8 mg/dL (0.2-1); TOT PROT 7.5 g/dl (6.4-8.2)
[2021-04-19] MEDS: hydrOXYzine PAMOATE 25 MG CAPSULE (FP) PO PRN (17:39)
[2021-04-19] MEDS: ONDANSETRON *ODT* 4 MG TABLET SL PRN (17:43)
[2021-04-19] MEDS: METHOCARBAMOL 500 MG TABLET PO PRN (22:20)
[2021-04-19] MEDS: MELATONIN 5 MG TABLETS PO PRN (22:20)
[2021-04-19] MEDS: THIAMINE HCL 100 MG TABLET (FP) PO SCH (22:20)
[2021-04-20] MEDS: hydrOXYzine PAMOATE 25 MG CAPSULE (FP) PO PRN ×3 (06:50→18:08)
[2021-04-20] MEDS: METHOCARBAMOL 500 MG TABLET PO PRN (06:50)
[2021-04-20] MEDS: diazePAM 5 MG TABLET PO PRN ×2 (09:55→18:08)
[2021-04-20] MEDS: PRENATAL VITAMINS W/ FOLIC ACID TABLET (FP) PO SCH (09:55)
[2021-04-20] MEDS: CLOTRIMAZOLE/BETAMET DIPROP TOPICAL CREAM 45 GM TUBE TP SCH ×2 (09:56→22:53)
[2021-04-20] MEDS ORDERED: methaDONE HCL 10 MG TABLET (FOR DETOX USE ONLY) PO ONE (10:00)
[2021-04-20] MEDS: THIAMINE HCL 100 MG TABLET (FP) PO SCH (22:53)
[2021-04-21] MEDS: hydrOXYzine PAMOATE 25 MG CAPSULE (FP) PO PRN (05:47)
[2021-04-21 08:59] VITALS: BP 130/72; PULSE 87; TEMP 97.3
[2021-04-21] MEDS: CLOTRIMAZOLE/BETAMET DIPROP TOPICAL CREAM 45 GM TUBE TP SCH (10:53)
[2021-04-21] MEDS: PRENATAL VITAMINS W/ FOLIC ACID TABLET (FP) PO SCH (10:53)
== END 2021-04-21 09:37 | disposition other institution (70) | DRG 773 ==
LOC: YASAS 16:21 → Y3N 04-16 01:19
PROVIDERS: ADMIT Allergy & Immunology; ATTEND Allergy & Immunology
PROC: HZ2ZZZZ Detoxification Services for Substance Abuse Treatment (ICD-10-PCS; principal; 2021-04-16)
DX: F11.23 Opioid dependence with withdrawal (principal); F13.230 Sedative, hypnotic or anxiolytic dependence with withdrawal, uncomplicated; F14.20 Cocaine dependence, uncomplicated; F12.20 Cannabis dependence, uncomplicated; F17.210 Nicotine dependence, cigarettes, uncomplicated; F19.24 Other psychoactive substance dependence with psychoactive substance-induced mood disorder; F41.8 Other specified anxiety disorders; F32.A Depression, unspecified; G47.00 Insomnia, unspecified; L40.9 Psoriasis, unspecified; R74.8 Abnormal levels of other serum enzymes; E66.9 Obesity, unspecified; Z68.32 Body mass index [BMI] 32.0-32.9, adult
CPT/HCPCS: 36415; 80053; 85025; 86780; C9803; J0735; Q0162; U0003; U0005

== ENCOUNTER 2023-04-13 16:52 | Inpatient (IN) | payer OTHER ==
[2023-04-13 18:23] VITALS: BMI 32.5
[2023-04-13] MEDS ORDERED: ACETAMINOPHEN 325 MG TABLET (FP) PO PRN (18:32)
[2023-04-13] MEDS ORDERED: IBUPROFEN 400 MG TABLET (FP) PO PRN (18:32)
[2023-04-13] MEDS ORDERED: ONDANSETRON *ODT* 4 MG TABLET SL PRN (18:32)
[2023-04-13] MEDS ORDERED: BISMUTH SUBSALICYLATE 524 MG/30 ML PO PRN (18:32)
[2023-04-13] MEDS ORDERED: guaiFENesin 600 MG TABLET.ER (FP) PO PRN (18:32)
[2023-04-13] MEDS ORDERED: IBUPROFEN 600 MG TABLET (FP) PO PRN (18:32)
[2023-04-13] MEDS ORDERED: DICYCLOMINE HCL 10 MG CAPSULE PO PRN (18:32)
[2023-04-13] MEDS ORDERED: NALOXONE HCL 0.4 MG/ML VIAL IM PRN (18:32)
[2023-04-13] MEDS ORDERED: P-EPHED 60MG/TRIPROLIDI 2.5MG TABLET PO PRN (18:32)
[2023-04-13] MEDS ORDERED: BENZONATATE 200 MG CAPSULE PO PRN (18:32)
[2023-04-13] MEDS ORDERED: POLYETHYLENE GLYCOL (HEALTHYLAX) 3350 17 GM PACKET PO PRN (18:32)
[2023-04-13] MEDS ORDERED: METHOCARBAMOL 500 MG TABLET PO PRN (18:32)
[2023-04-13] MEDS ORDERED: LOPERAMIDE HCL 2 MG CAPSULE PO PRN (18:32)
[2023-04-13] MEDS ORDERED: MAG HYDROX/AL HYDROX/SIMETH 30 ML UNIT-DOSE CUP PO PRN (18:32)
[2023-04-13] MEDS ORDERED: NALOXONE HCL (KLOXXADO) 8 MG SPRAY NS PRN (18:32)
[2023-04-13] MEDS ORDERED: BENZOCAINE/MENTHOL (CHLORASEPTIC ) LOZENGE MM PRN (18:32)
[2023-04-13] MEDS ORDERED: MAGNESIUM HYDROX 2400MG/30ML ORAL SUSPENSION 30 ML CUP PO PRN (18:32)
[2023-04-13] MEDS: MELATONIN 5 MG TABLETS PO SCH (22:14)
[2023-04-13] MEDS: levETIRAcetam 500 MG TABLET (FP) PO SCH (22:14)
[2023-04-13] MEDS: THIAMINE HCL 100 MG TABLET (FP) PO SCH (22:14)
[2023-04-13] MEDS: hydrOXYzine PAMOATE 25 MG CAPSULE (FP) PO PRN (22:17)
[2023-04-14] MEDS ORDERED: methaDONE HCL 10 MG TABLET (FOR DETOX USE ONLY) PO ONE (09:18)
[2023-04-14] MEDS: levETIRAcetam 500 MG TABLET (FP) PO SCH ×2 (10:17→21:12)
[2023-04-14] MEDS: PRENATAL VITAMINS W/ FOLIC ACID TABLET (FP) PO SCH (10:18)
[2023-04-14] MEDS: diazePAM 5 MG TABLET PO SCH ×3 (10:18→23:09)
[2023-04-14] MEDS: NICOTINE 7 MG/24 HOURS TOPICAL PATCH TD SCH (10:20)
[2023-04-14 11:11] LABS: HEMATOCRIT 40.6 % (35.4-49); HEMOGLOBIN 13.3 GM/dL (11.7-16.9); MCH 29.5 pg (25.7-33.7); MCHC 32.7 g/dl (32.0-35.9); MEAN CELL VOLUME 90.2 fl (80-96); MEAN PLT VOLUME 9.4 fl (7.5-11.1); PLATELET COUNT 202 10^3/uL (134-434); RBC 4.51 M/mm3 (4.00-5.60); WHITE BLOOD COUNT 6.7 K/mm3 (4.0-10.0)
[2023-04-14 11:34] LABS: POTASSIUM 3.8 mmol/L (3.5-5.1)
[2023-04-14 11:37] LABS: BLOOD UREA NITROGEN 13.1 mg/dL (7-18); CALCIUM 9.4 mg/dL (8.5-10.1)
[2023-04-14 11:38] LABS: ALBUMIN 3.8 g/dl (3.4-5.0)
[2023-04-14 11:40] LABS: CREATININE 0.9 mg/dL (0.55-1.3)
[2023-04-14 11:42] LABS: BILIRUBIN,TOTAL 0.6 mg/dL (0.2-1)
[2023-04-14] MEDS: cloNIDine HCL 0.1 MG TABLET PO PRN (21:12)
[2023-04-14] MEDS: THIAMINE HCL 100 MG TABLET (FP) PO SCH (21:12)
[2023-04-14] MEDS: diazePAM 5 MG TABLET PO PRN (21:12)
[2023-04-14] MEDS: hydrOXYzine PAMOATE 25 MG CAPSULE (FP) PO PRN (21:12)
[2023-04-14] MEDS: MELATONIN 5 MG TABLETS PO SCH (23:08)
[2023-04-15] MEDS: diazePAM 5 MG TABLET PO SCH ×3 (06:19→22:23)
[2023-04-15] MEDS: PRENATAL VITAMINS W/ FOLIC ACID TABLET (FP) PO SCH (10:50)
[2023-04-15] MEDS: levETIRAcetam 500 MG TABLET (FP) PO SCH ×2 (10:51→22:22)
[2023-04-15] MEDS: hydrOXYzine PAMOATE 25 MG CAPSULE (FP) PO PRN (10:52)
[2023-04-15] MEDS: NICOTINE 7 MG/24 HOURS TOPICAL PATCH TD SCH (10:52)
[2023-04-15] MEDS: cloNIDine HCL 0.1 MG TABLET PO PRN (17:51)
[2023-04-15] MEDS: diazePAM 5 MG TABLET PO PRN (17:51)
[2023-04-15] MEDS: THIAMINE HCL 100 MG TABLET (FP) PO SCH (22:22)
[2023-04-15] MEDS: MELATONIN 5 MG TABLETS PO SCH (22:24)
[2023-04-16] MEDS ORDERED: diazePAM 5 MG TABLET PO SCH (06:00)
[2023-04-16 08:55] VITALS: BP 121/63; PULSE 80; RESP 16; TEMP 98.3
[2023-04-16] MEDS ORDERED: methaDONE HCL 10 MG TABLET (FOR DETOX USE ONLY) PO ONE (10:00)
[2023-04-16] MEDS: levETIRAcetam 500 MG TABLET (FP) PO SCH (10:16)
[2023-04-16] MEDS: PRENATAL VITAMINS W/ FOLIC ACID TABLET (FP) PO SCH (10:17)
[2023-04-16] MEDS: NICOTINE 7 MG/24 HOURS TOPICAL PATCH TD SCH (10:17)
[2023-04-17] MEDS ORDERED: diazePAM 5 MG TABLET PO ONE (06:00)
[2023-04-18] MEDS ORDERED: methaDONE HCL 10 MG TABLET (FOR DETOX USE ONLY) PO ONE (10:00)
== END 2023-04-16 11:01 | disposition left against medical advice (07) | DRG 770 ==
LOC: YASAS 16:52 → Y6N 19:13
PROVIDERS: ADMIT Allergy & Immunology; ATTEND Allergy & Immunology
PROC: HZ2ZZZZ Detoxification Services for Substance Abuse Treatment (ICD-10-PCS; principal; 2023-04-13)
DX: F11.23 Opioid dependence with withdrawal (principal); F13.230 Sedative, hypnotic or anxiolytic dependence with withdrawal, uncomplicated; F17.210 Nicotine dependence, cigarettes, uncomplicated; F41.9 Anxiety disorder, unspecified; F32.A Depression, unspecified; L40.9 Psoriasis, unspecified; M54.50 Low back pain, unspecified; G89.29 Other chronic pain; Z28.310 Unvaccinated for COVID-19; Z28.9 Immunization not carried out for unspecified reason
CPT/HCPCS: 36415; 80053; 85027; 86780; 87635; 87811